=== PATIENT | female | born 1950 | race Caucasian/White ===

== ENCOUNTER 2021-08-08 11:35 | Inpatient (IN) | payer MEDICARE, SELFPAY ==
--- NOTE | 2021-08-08 | ECG_ITS ---
Test Reason : qtc check Blood Pressure : / mmHG Vent. Rate : 082 BPM Atrial Rate : 082 BPM P-R Int : 144 ms QRS Dur : 076 ms QT Int : 382 ms P-R-T Axes : 022 011 038 degrees QTc Int : 446 ms Sinus rhythm with Premature atrial complexes Otherwise normal ECG No previous ECGs available Referred By: Mukesh Harvey Electronically Signed By:FESTUS FREEMAN
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
[2021-08-08] MEDS: Furosemide 40 MG TABLET PO (14:30)
[2021-08-08 18:00] VITALS: BP 127/77; PULSE 80; RESP 18; TEMP 36.1; O2SAT 99
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
[2021-08-08] MEDS: Lurasidone HCl 80 MG TABLET PO (21:13)
[2021-08-08] MEDS: hydrOXYzine HCL 25 MG TABLET PO (21:13)
[2021-08-08] MEDS: traZODone HCL 100 MG TABLET 200 MG PO (21:13)
[2021-08-08] MEDS: DULoxetine HCl 60 MG CAPSULE.DR PO (21:13)
[2021-08-08] MEDS: traMADoL HCL 50 MG TABLET PO (21:14)
[2021-08-08 21:54] LABS: Appearance Urine CLEAR; Color Urine YELLOW; Glucose Urine UA NEG (NEG); Leukocyte Esterase Urine NEG (NEG); Nitrite Urine NEG (NEG); Specific Gravity - Urine 1.015 (1.005-1.025); Urine Blood NEG (NEG); Urine Ketones NEG (NEG); Urine Protein NEG (NEG-TRACE)
[2021-08-09] MEDS: traZODone HCL 50 MG TABLET PO (01:04)
[2021-08-09 06:00] VITALS: BP 116/60; PULSE 88; TEMP 36; O2SAT 95
[2021-08-09] MEDS: traMADoL HCL 50 MG TABLET 100 MG PO (06:44)
[2021-08-09 07:10] LABS: MANUAL DIFF FLAG NO
[2021-08-09 07:13] LABS: Basophils Absolute Auto 0.1 X10*3/uL (0.0-0.2); Basophils Percent Auto 0.6 % (0-2); Eosinophils Absolute Auto 0.4 X10*3/uL (0.0-0.4); Hematocrit 41.1 % (37-47); Hemoglobin 13.8 g/dl (12.0-16.0); Imm Gran Abs Auto 0.03 X10*3/uL (0.00-0.03); Imm Gran Pct Auto 0.4 % (0.0-0.4); Lymphocytes Percent Auto 37.5 % (20-40); Mean Corpuscular HGB Conc 33.6 g/dl (31.0-35.0); Mean Corpuscular Hemoglobin 31.1 pg (27.0-33.0); Mean Corpuscular Volume 92.6 fL (80-98); Mean Platelet Volume 11.7 fL (9.4-12.3); Monocytes Absolute Auto 0.5 X10*3/uL (0.1-1.2); Monocytes Percent Auto 6.4 % (2-11); Neutrophils Percent Auto 50.1 % (45-73); Platelet Count 206 X10*3/uL (160-400); Red Blood Count 4.44 X10*6/uL (4.20-5.50); Red Cell Distribution Width 13.6 % (11.0-16.0)
[2021-08-09 07:25] LABS: Estimated Average Glucose 105 mg/dL; Hemoglobin A1c % 5.3 %
[2021-08-09 07:29] LABS: Anion Gap 14 (12-20); Blood Urea Nitrogen 27 mg/dL (9-16); Calcium 8.4 mg/dL (8.4-10.2); Carbon Dioxide 28 mmol/L (22-29); Chloride 104 mmol/L (96-108); Cholesterol 177 mg/dL; Estimated Glomerular Filt Rate 31; Glucose Random 95 mg/dL (60-115); HDL Cholesterol 50 mg/dL; LDL Cholesterol Calculated 105 mg/dl; Potassium 3.7 mmol/L (3.3-5.1); Sodium 142 mmol/L (135-145); Triglycerides 112 mg/dL
[2021-08-09 07:49] LABS: Thyroid Stimulating Hormone 2.04 uIU/mL (0.32-4.0)
[2021-08-09 08:06] LABS: Folate 10.9 ng/mL (> or = 4.0); Vitamin B12 466 pg/mL (200-900)
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
[2021-08-09] MEDS: Furosemide 40 MG TABLET PO (09:46)
[2021-08-09] MEDS: Rilpivirine HCL 25 MG TABLET PO (09:46)
[2021-08-09] MEDS: lamiVUDine 150 MG TABLET 300 MG PO (09:46)
[2021-08-09] MEDS: calcitrioL 0.25 MCG CAPSULE PO (09:46)
[2021-08-09] MEDS: DULoxetine HCl 60 MG CAPSULE.DR PO ×2 (09:47→20:41)
[2021-08-09] MEDS: hydrOXYzine HCL 25 MG TABLET PO ×3 (09:47→20:42)
--- NOTE | 2021-08-09 14:50 | PM.IMCN ---
History of Present Illness Data of Consult Service Date: 08/09/21 Primary Care Provider: Abraham Melton MD [facility] Reason for consult: Routine medical exam This is a 71 yo F with a PMH of CKD2/3, HIV, Bipolar disorder who wanted to [facility] with auditory hallucinations. She has been since transferred to the inpatient [facility] psych Unit at [facility]. Patient is seen and examined in her room. She reports generalized itching which is chronic for her but otherwise denies any medical complaints. She denies any chest pain or shortness of breath. She denies any cough. She denies any abdominal pain. Her PMH is obtained with the help of the admission H&P from [facility]. Review of Systems Review of Systems: General - no fevers or chills Cardiovascular - no chest pain Respiratory - no shortness of breath or cough Abdominal- no abdominal pain, nausea, vomiting, diarrhea Yes all other systems are reviewed and are negative (except psych) [facility] Medical History (Updated 08/09/21 @ 15:06 by Gabriel Barraza MD) Asthma History of nephrolithiasis HIV (human immunodeficiency virus infection) Hypoparathyroidism Impaired fasting glucose Mild dementia BOO (obstructive sleep apnea) Spinal stenosis Stage III chronic kidney disease Stenotic cervical os Pertinent family history: Rectal cancer in her father in his 80s Surgical History (Updated 08/09/21 @ 15:02 by Gabriel Barraza MD) H/O parathyroidectomy Social History Household Members: None Housing: Apartment Do you presently have visiting nurse or other home services: No Patient Tobacco Use Status: Never used Tobacco Use of substances other than those prescribed or required for medical reasons: No Currently Displaying Signs/Symptoms of Drug Intoxication Withdrawal: No Have you been hit, kicked, punched, or otherwise hurt by someone within the past year? If so, by whom?: No Do you feel safe in your current relationship?: No Current Relationship Is there a partner from a previous relationship who is making you feel unsafe now?: No Are you made to feel afraid or neglected: No Advance Directives: No Advance Directives Information Provided: No Do you have thoughts of harming others: None Do you have a plan to hurt others: No Plan Recently lost weight without trying: No How much weight loss: Not applicable Eating poorly because of decreased appetite: No Nutrition screen score: 0 Nutrition Risks: No Nutritional Risk Patient : No : No Poor oral hygiene: No service: No Sexual orientation: Straight/Heterosexual Meds Allergies Allergy/AdvReac Type Severity Reaction Status Date / Time aspirin [ASA] AdvReac Unknown Verified 08/08/21 11:51 lactose AdvReac Nausea and Verified 08/08/21 11:51 Vomiting risperidone [From Risperdal] AdvReac Unknown Verified 08/08/21 11:51 Active Medications: Current Medications Abacavir Sulfate (Abacavir Sulfate 300 Mg Tablet) 300 mg PO Q12H [facility] Last Admin: 08/09/21 06:44 Dose: 300 mg Documented by: Acetaminophen (Acetaminophen 325 Mg Tablet) 650 mg PO Q6H PRN PRN Reason: Headache/Pain Mild Scale (1-3) Al Hydroxide/Mg Hydroxide (Magnesium Hydrox/Alum Hydrox 30 Ml Oral.Susp) 30 ml PO Q6H PRN PRN Reason: Heartburn/Nausea Albuterol Sulfate (Albuterol Sulfate 90 Mcg 8 Gm Inhaler) 2 puff INHALE Q6H PRN PRN Reason: Wheezing Calcitriol (Calcitriol 0.25 Mcg Capsule) 0.25 mcg PO DAILY [facility] Last Admin: 08/09/21 09:46 Dose: 0.25 mcg Documented by: Calcium Carbonate (Calcium Carbonate 500 Mg Tablet) 500 mg PO DAILY [facility] Last Admin: 08/09/21 09:46 Dose: 500 mg Documented by: Duloxetine HCl (Duloxetine Hcl 60 Mg Capsule.Dr) 60 mg PO BID [facility] Last Admin: 08/09/21 09:47 Dose: 60 mg Documented by: Furosemide (Furosemide 40 Mg Tablet) 40 mg PO DAILY [facility]; Protocol Last Admin: 08/09/21 09:46 Dose: 40 mg Documented by: Furosemide (Furosemide 20 Mg Tablet) 20 mg PO BEDTIME [facility] Last Admin: 08/08/21 22:49 Dose: Not Given Documented by: Hydroxyzine HCl (Hydroxyzine Hcl 25 Mg Tablet) 25 mg PO TID [facility] Last Admin: 08/09/21 14:21 Dose: 25 mg Documented by: Lamivudine (Lamivudine 150 Mg Tablet) 300 mg PO DAILY [facility] Last Admin: 08/09/21 09:46 Dose: 300 mg Documented by: Lurasidone HCl (Lurasidone Hcl 80 Mg Tablet) 80 mg PO BEDTIME [facility] Last Admin: 08/08/21 21:13 Dose: 80 mg Documented by: Magnesium Hydroxide (Milk Of Magnesia 30 Ml Oral.Susp) 30 ml PO DAILY PRN PRN Reason: Constipation Multivitamins/Minerals (Multivitamin With Minerals Tablet) 1 tab PO DAILY [facility] Last Admin: 08/09/21 14:09 Dose: Not Given Documented by: Non-Formulary Medication (Potassium Citrate) 20 meq PO BID@0900,1700 [facility] Rilpivirine (Rilpivirine Hcl 25 Mg Tablet) 25 mg PO DAILY [facility] Last Admin: 08/09/21 09:46 Dose: 25 mg Documented by: Tramadol HCl (Tramadol Hcl 50 Mg Tablet) 50 mg PO BEDTIME [facility] Last Admin: 08/08/21 21:14 Dose: 50 mg Documented by: Tramadol HCl (Tramadol Hcl 50 Mg Tablet) 100 mg PO DAILY@0730 [facility] Last Admin: 08/09/21 06:44 Dose: 100 mg Documented by: Trazodone HCl (Trazodone Hcl 50 Mg Tablet) 50 mg PO BEDTIME PRN PRN Reason: Insomnia Last Admin: 08/09/21 01:04 Dose: 50 mg Documented by: Trazodone HCl (Trazodone Hcl 100 Mg Tablet) 200 mg PO BEDTIME [facility] Last Admin: 08/08/21 21:13 Dose: 200 mg Documented by: Home Medications Medication Instructions Recorded Confirmed Last Taken Type abacavir 300 mg tablet 300 mg PO Q12H 08/08/21 08/08/21 Unknown History albuterol sulfate 90 mcg/actuation 2 puff INHALATION Q6H PRN MDD 12 08/08/21 08/08/21 Unknown History aerosol inhaler (Ventolin HFA) puffs calcitriol 0.25 mcg capsule 0.25 mcg PO DAILY 08/08/21 08/08/21 Unknown History calcium carbonate 500 mg capsule 500 mg PO DAILY 08/08/21 08/08/21 Unknown History duloxetine 60 mg capsule,delayed 60 mg PO BID 08/08/21 08/08/21 Unknown History release furosemide 20 mg PO BEDTIME 08/08/21 08/08/21 Unknown History furosemide 40 mg tablet 40 mg PO QAM 08/08/21 08/08/21 Unknown History hydroxyzine pamoate 25 mg capsule 25 mg PO TID 08/08/21 08/08/21 Unknown History lamivudine 300 mg tablet 300 mg PO DAILY 08/08/21 08/08/21 Unknown History lurasidone 60 mg tablet (Latuda) 60 mg PO DAILY 08/08/21 08/08/21 Unknown History multivitamin,ea-fkvu-Fw-FA-min 1 tab PO DAILY 08/08/21 08/08/21 Unknown History potassium citrate 20 meq PO BID@0900,1700 08/08/21 08/08/21 Unknown History rilpivirine 25 mg tablet (Edurant) 25 mg PO DAILY 08/08/21 08/08/21 Unknown History tramadol 100 mg tablet 100 mg PO DAILY@0730 08/08/21 08/08/21 Unknown History tramadol 50 mg tablet 50 mg PO BEDTIME 08/08/21 08/08/21 Unknown History trazodone 100 mg tablet 200 mg PO BEDTIME 08/08/21 08/08/21 Unknown History Physical Exam Vital Signs and Narrative: Vital Signs: Last Vital Signs Temp 96.8 F 08/09/21 06:00 Pulse 88 08/09/21 06:00 Resp 18 08/08/21 18:00 BP 116/60 08/09/21 06:00 Pulse Ox 95 08/09/21 06:00 Const: Other: General - no acute distress, appears comfortable Cardiovascular - regular rate and rhythm, S1-S2 Lungs - normal respiratory effort, clear to auscultation bilaterally, no wheezing Abdomen - soft, nontender, no rebound or guarding Extremities - no edema bilaterally Neuro - awake and alert, no focal deficits; CN 2-12 in tact Results Labs CBC and Chem 7: 08/09/21 06:54 08/09/21 06:54 Labs: Laboratory Results - last 24 hr 08/08/21 08/09/21 08/09/21 21:50 06:54 06:54 MCV 92.6 MCH 31.1 MCHC 33.6 RDW 13.6 Plt Count 206 MPV 11.7 Immature Gran % (Auto) 0.4 Neut % (Auto) 50.1 Lymph % (Auto) 37.5 [place] % (Auto) 6.4 Eos % (Auto) 5.0 H Baso % (Auto) 0.6 Lymph # (Auto) 3.0 [place] # (Auto) 0.5 Eos # (Auto) 0.4 Baso # (Auto) 0.1 Abs Immat Gran (auto) 0.03 Absolute Neuts (auto) 4.0 Absolute Nucleated RBC 0.000 Nucleated RBC % (auto) 0.0 Anion Gap 14 Estim Creat Clear Calc TNP Estimated GFR 31 Random Glucose 95 Estimat Average Glucose Hemoglobin A1c % Calcium 8.4 Triglycerides 112 Cholesterol 177 LDL Cholesterol, Calc 105 HDL Cholesterol 50 Vitamin B12 Folate TSH 2.04 Urine Color YELLOW Urine Appearance CLEAR Urine pH 6.0 Ur Specific [place] 1.015 Urine Protein NEG Urine Glucose (UA) NEG Urine Ketones NEG Urine Blood NEG Urine Nitrite NEG Ur Leukocyte Esterase NEG 08/09/21 08/09/21 06:54 06:54 MCV MCH MCHC RDW Plt Count MPV Immature Gran % (Auto) Neut % (Auto) Lymph % (Auto) [place] % (Auto) Eos % (Auto) Baso % (Auto) Lymph # (Auto) [place] # (Auto) Eos # (Auto) Baso # (Auto) Abs Immat Gran (auto) Absolute Neuts (auto) Absolute Nucleated RBC Nucleated RBC % (auto) Anion Gap Estim Creat Clear Calc Estimated GFR Random Glucose Estimat Average Glucose 105 Hemoglobin A1c % 5.3 Calcium Triglycerides Cholesterol LDL Cholesterol, Calc HDL Cholesterol Vitamin B12 466 Folate 10.9 TSH Urine Color Urine Appearance Urine pH Ur Specific [place] Urine Protein Urine Glucose (UA) Urine Ketones Urine Blood Urine Nitrite Ur Leukocyte Esterase Assessment and Plan (1) Routine medical exam: Status: Acute This is a 71-year-old female with multiple medical problems including CKD stage 3, HIV on HAART, hyperparathyroidism, bipolar disorder amongst others who is admitted to the [facility] psych unit. Medical services are consulted for routine medical H&P. Patient appears to be medically stable at this time. 1. HIV Continue HAART 2. Hyperparathyroidism continue baseline meds 3. CKD3 monitor renal function intermittently 4. Bipolar d/o care per primary team Will sign off at this time. Please re-consult with any questions. Thank you.
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
[2021-08-09 18:00] VITALS: BP 130/82; PULSE 86; RESP 18; TEMP 36.2; O2SAT 94
[2021-08-09] MEDS: Furosemide 20 MG TABLET PO (20:41)
[2021-08-09] MEDS: traMADoL HCL 50 MG TABLET PO (20:42)
[2021-08-09] MEDS: Lurasidone HCl 80 MG TABLET PO (20:42)
[2021-08-09] MEDS: traZODone HCL 100 MG TABLET 200 MG PO (20:43)
[2021-08-10 09:21] VITALS: BP 122/59; PULSE 81; RESP 14; TEMP 36.6; O2SAT 92
[2021-08-10] MEDS: traMADoL HCL 50 MG TABLET 100 MG PO (09:41)
[2021-08-10] MEDS: hydrOXYzine HCL 25 MG TABLET PO ×3 (09:42→19:57)
[2021-08-10] MEDS: lamiVUDine 150 MG TABLET 300 MG PO (09:42)
[2021-08-10] MEDS: calcitrioL 0.25 MCG CAPSULE PO (09:43)
[2021-08-10] MEDS: Furosemide 40 MG TABLET PO (09:44)
[2021-08-10] MEDS: Rilpivirine HCL 25 MG TABLET PO (09:44)
[2021-08-10] MEDS: DULoxetine HCl 60 MG CAPSULE.DR PO ×2 (09:44→19:57)
[2021-08-10] MEDS: Multivitamin TABLET 1 TAB PO (09:45)
[2021-08-10 18:00] VITALS: BP 169/88; PULSE 98; RESP 20; TEMP 36.4; O2SAT 93
[2021-08-10] MEDS: traZODone HCL 100 MG TABLET 200 MG PO (19:55)
[2021-08-10] MEDS: traMADoL HCL 50 MG TABLET PO (19:55)
[2021-08-10] MEDS: Furosemide 20 MG TABLET PO (19:57)
[2021-08-10] MEDS: Lurasidone HCl 80 MG TABLET PO (19:57)
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
[2021-08-11 08:50] VITALS: BP 120/71; PULSE 85; RESP 16; TEMP 36.6; O2SAT 97
[2021-08-11] MEDS: Rilpivirine HCL 25 MG TABLET PO (08:57)
[2021-08-11] MEDS: lamiVUDine 150 MG TABLET 300 MG PO (08:57)
[2021-08-11] MEDS: calcitrioL 0.25 MCG CAPSULE PO (08:58)
[2021-08-11] MEDS: Furosemide 40 MG TABLET PO (08:58)
[2021-08-11] MEDS: Multivitamin TABLET 1 TAB PO (08:58)
[2021-08-11] MEDS: DULoxetine HCl 60 MG CAPSULE.DR PO ×2 (08:58→20:40)
[2021-08-11] MEDS: traMADoL HCL 50 MG TABLET 100 MG PO (08:59)
[2021-08-11] MEDS: hydrOXYzine HCL 25 MG TABLET PO ×3 (09:02→20:40)
[2021-08-11] MEDS: Acetaminophen 325 MG TABLET 650 MG PO (10:48)
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
[2021-08-11 18:00] VITALS: BP 95/58; PULSE 92; RESP 18; TEMP 36.6; O2SAT 96
[2021-08-11] MEDS: traZODone HCL 100 MG TABLET 200 MG PO (20:38)
[2021-08-11] MEDS: traMADoL HCL 50 MG TABLET PO (20:39)
[2021-08-11] MEDS: Lurasidone HCl 80 MG TABLET PO (20:40)
[2021-08-12 06:00] VITALS: BP 121/78; PULSE 68
[2021-08-12] MEDS: traMADoL HCL 50 MG TABLET 100 MG PO (10:13)
[2021-08-12] MEDS: hydrOXYzine HCL 25 MG TABLET PO ×3 (10:13→21:03)
[2021-08-12] MEDS: Multivitamin TABLET 1 TAB PO (10:16)
[2021-08-12] MEDS: lamiVUDine 150 MG TABLET 300 MG PO (10:17)
[2021-08-12] MEDS: calcitrioL 0.25 MCG CAPSULE PO (10:17)
[2021-08-12] MEDS: DULoxetine HCl 60 MG CAPSULE.DR PO ×2 (10:18→21:03)
[2021-08-12] MEDS: Rilpivirine HCL 25 MG TABLET PO (10:18)
[2021-08-12] MEDS: Furosemide 40 MG TABLET PO (10:18)
[2021-08-12] MEDS: HaloperidoL 1 MG TABLET 2 MG PO ×2 (11:55→21:03)
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
[2021-08-12] MEDS: Furosemide 20 MG TABLET PO (17:00)
[2021-08-12 18:00] VITALS: BP 115/76; PULSE 86; RESP 18; TEMP 36.9; O2SAT 90
[2021-08-12] MEDS: Lurasidone HCl 80 MG TABLET PO (21:03)
[2021-08-12] MEDS: traZODone HCL 100 MG TABLET 200 MG PO (21:03)
[2021-08-12] MEDS: traMADoL HCL 50 MG TABLET PO (21:04)
[2021-08-13] MEDS: Acetaminophen 325 MG TABLET 650 MG PO (03:43)
[2021-08-13 06:00] VITALS: BP 135/79; PULSE 78; RESP 16; TEMP 36.7; O2SAT 94
[2021-08-13] MEDS: DULoxetine HCl 60 MG CAPSULE.DR PO ×2 (10:01→20:26)
[2021-08-13] MEDS: HaloperidoL 1 MG TABLET 2 MG PO ×2 (10:01→20:26)
[2021-08-13] MEDS: lamiVUDine 150 MG TABLET 300 MG PO (10:02)
[2021-08-13] MEDS: traMADoL HCL 50 MG TABLET 100 MG PO (10:05)
[2021-08-13] MEDS: Rilpivirine HCL 25 MG TABLET PO (10:06)
[2021-08-13] MEDS: hydrOXYzine HCL 25 MG TABLET PO ×3 (10:06→20:25)
[2021-08-13] MEDS: Multivitamin TABLET 1 TAB PO (10:06)
[2021-08-13] MEDS: calcitrioL 0.25 MCG CAPSULE PO (10:06)
[2021-08-13] MEDS: Furosemide 40 MG TABLET PO (10:07)
[2021-08-13] MEDS: Magnesium Hydrox/Alum Hydrox 30 ML ORAL.SUSP PO (10:20)
[2021-08-13] MEDS: Furosemide 20 MG TABLET PO (16:43)
[2021-08-13 18:00] VITALS: BP 133/90; PULSE 84; RESP 18; TEMP 36.8; O2SAT 95
[2021-08-13] MEDS: traZODone HCL 100 MG TABLET 200 MG PO (20:25)
[2021-08-13] MEDS: Lurasidone HCl 80 MG TABLET PO (20:25)
[2021-08-13] MEDS: traMADoL HCL 50 MG TABLET PO (20:26)
[2021-08-14] MEDS: Acetaminophen 325 MG TABLET 650 MG PO (05:12)
[2021-08-14] MEDS: DULoxetine HCl 60 MG CAPSULE.DR PO ×2 (08:11→19:59)
[2021-08-14] MEDS: Furosemide 40 MG TABLET PO (08:12)
[2021-08-14] MEDS: Multivitamin TABLET 1 TAB PO (08:12)
[2021-08-14] MEDS: hydrOXYzine HCL 25 MG TABLET PO ×3 (08:12→20:00)
[2021-08-14] MEDS: HaloperidoL 1 MG TABLET 2 MG PO (08:12)
[2021-08-14] MEDS: Rilpivirine HCL 25 MG TABLET PO (08:19)
[2021-08-14] MEDS: calcitrioL 0.25 MCG CAPSULE PO (08:19)
[2021-08-14] MEDS: lamiVUDine 150 MG TABLET 300 MG PO (08:19)
[2021-08-14 08:31] VITALS: BP 109/70; PULSE 80; RESP 16; TEMP 37; O2SAT 97
[2021-08-14] MEDS: traMADoL HCL 50 MG TABLET 100 MG PO (09:39)
[2021-08-14] MEDS: Milk of Magnesia 30 ML ORAL.SUSP PO (10:50)
[2021-08-14] MEDS: Furosemide 20 MG TABLET PO (16:37)
[2021-08-14 18:00] VITALS: BP 105/64; PULSE 80; RESP 18; TEMP 36.9; O2SAT 95
[2021-08-14] MEDS: traZODone HCL 100 MG TABLET 200 MG PO (19:58)
[2021-08-14] MEDS: traMADoL HCL 50 MG TABLET PO (19:59)
[2021-08-14] MEDS: Lurasidone HCl 40 MG TABLET 120 MG PO (20:00)
[2021-08-15 09:41] VITALS: BP 113/63; PULSE 85; RESP 16; TEMP 36.5; O2SAT 95
[2021-08-15] MEDS: traMADoL HCL 50 MG TABLET 100 MG PO (10:07)
[2021-08-15] MEDS: Rilpivirine HCL 25 MG TABLET PO (10:07)
[2021-08-15] MEDS: calcitrioL 0.25 MCG CAPSULE PO (10:07)
[2021-08-15] MEDS: hydrOXYzine HCL 25 MG TABLET PO ×2 (10:08→20:17)
[2021-08-15] MEDS: Multivitamin TABLET 1 TAB PO (10:08)
[2021-08-15] MEDS: Furosemide 40 MG TABLET PO (10:08)
[2021-08-15] MEDS: lamiVUDine 150 MG TABLET 300 MG PO (10:08)
[2021-08-15] MEDS: DULoxetine HCl 60 MG CAPSULE.DR PO ×2 (10:08→20:17)
--- NOTE | 2021-08-15 13:47 | HO.PSYCHPN ---
Subjective Subjective Date of Service: 08/15/21 Reason For Visit: Major depressive w/psychotic features Subjective Notes: Conditional Voluntary Interim History: The nursing staff reported that the patients comes out only for meals, she is mostly seclusive but appropriated. Staff has reported that she self-talks and responds to internal stimuli. SW has reported that the patient does not have social contacts, no way to get collateral information besides staff from ancillary services. On interview, she reported that she does not hear voices, looks appropriated. Review of Systems Acute medical concerns: No Medical Review of Systems: unchanged Mental Status Exam Mental Status Exam Patient Appearance: Disheveled Patient Orientation: Person and Situation Level of Consciousness: Awake Patient Behavior: Appropriate Mood Description: Calm Affect Description: Blunted Patient Cognition Impaired: Yes Ability to Follow Directions: Good Speech Pattern: Clear Memory Description: Intact Hallucinations: Auditory Delusions: Not Present Thought Process: Linear and Slowed Thinking Thought Content: positive for Poverty of Content Judgement: Fair Diagnostics Vital Signs (24Hr): Vital Signs - 24 hr 08/14/21 18:00 08/15/21 09:41 Temperature 98.4 F 97.7 F Pulse Rate 80 85 Respiratory Rate 18 16 Blood Pressure 105/64 113/63 Pulse Oximetry 95 95 Labs Results: 08/09/21 06:54 08/09/21 06:54 Medications Medications Current Medications Abacavir Sulfate (Abacavir Sulfate 300 Mg Tablet) 300 mg PO BID [facility] Last Admin: 08/15/21 10:08 Dose: 300 mg Documented by: Acetaminophen (Acetaminophen 325 Mg Tablet) 650 mg PO Q6H PRN PRN Reason: Headache/Pain Mild Scale (1-3) Last Admin: 08/14/21 05:12 Dose: 650 mg Documented by: Al Hydroxide/Mg Hydroxide (Magnesium Hydrox/Alum Hydrox 30 Ml Oral.Susp) 30 ml PO Q6H PRN PRN Reason: Heartburn/Nausea Last Admin: 08/13/21 10:20 Dose: 30 ml Documented by: Albuterol Sulfate (Albuterol Sulfate 90 Mcg 8 Gm Inhaler) 2 puff INHALE Q6H PRN PRN Reason: Wheezing Calcitriol (Calcitriol 0.25 Mcg Capsule) 0.25 mcg PO DAILY [facility] Last Admin: 08/15/21 10:07 Dose: 0.25 mcg Documented by: Calcium Carbonate (Calcium Carbonate 500 Mg Tablet) 500 mg PO DAILY [facility] Last Admin: 08/15/21 10:08 Dose: 500 mg Documented by: Duloxetine HCl (Duloxetine Hcl 60 Mg Capsule.Dr) 60 mg PO BID [facility] Last Admin: 08/15/21 10:08 Dose: 60 mg Documented by: Furosemide (Furosemide 40 Mg Tablet) 40 mg PO DAILY [facility]; Protocol Last Admin: 08/15/21 10:08 Dose: 40 mg Documented by: Furosemide (Furosemide 20 Mg Tablet) 20 mg PO BEDTIME@1700 [facility] Last Admin: 08/14/21 16:37 Dose: 20 mg Documented by: Haloperidol (Haloperidol 1 Mg Tablet) 2 mg PO BID PRN PRN Reason: psychosis Hydroxyzine HCl (Hydroxyzine Hcl 25 Mg Tablet) 25 mg PO TID [facility] Last Admin: 08/15/21 10:08 Dose: 25 mg Documented by: Lamivudine (Lamivudine 150 Mg Tablet) 300 mg PO DAILY [facility] Last Admin: 08/15/21 10:08 Dose: 300 mg Documented by: Lurasidone HCl (Lurasidone Hcl 40 Mg Tablet) 120 mg PO BEDTIME [facility] Last Admin: 08/14/21 20:00 Dose: 120 mg Documented by: Magnesium Hydroxide (Milk Of Magnesia 30 Ml Oral.Susp) 30 ml PO DAILY PRN PRN Reason: Constipation Last Admin: 08/14/21 10:50 Dose: 30 ml Documented by: Multivitamins/Vitamin C (Multivitamin Tablet) 1 tab PO DAILY [facility] Last Admin: 08/15/21 10:08 Dose: 1 tab Documented by: Non-Formulary Medication (Potassium Citrate) 20 meq PO BID@0900,1700 [facility] Rilpivirine (Rilpivirine Hcl 25 Mg Tablet) 25 mg PO DAILY [facility] Last Admin: 08/15/21 10:07 Dose: 25 mg Documented by: Tramadol HCl (Tramadol Hcl 50 Mg Tablet) 100 mg PO DAILY@0730 [facility] Last Admin: 08/15/21 10:07 Dose: 100 mg Documented by: Tramadol HCl (Tramadol Hcl 50 Mg Tablet) 50 mg PO BEDTIME [facility] Last Admin: 08/14/21 19:59 Dose: 50 mg Documented by: Trazodone HCl (Trazodone Hcl 50 Mg Tablet) 50 mg PO BEDTIME PRN PRN Reason: Insomnia Last Admin: 08/09/21 01:04 Dose: 50 mg Documented by: Trazodone HCl (Trazodone Hcl 100 Mg Tablet) 200 mg PO BEDTIME [facility] Last Admin: 08/14/21 19:58 Dose: 200 mg Documented by: Allergies Allergies Allergy/AdvReac Type Severity Reaction Status Date / Time aspirin [ASA] AdvReac Unknown Verified 08/08/21 11:51 lactose AdvReac Nausea and Verified 08/08/21 11:51 Vomiting risperidone [From Risperdal] AdvReac Unknown Verified 08/08/21 11:51 Assessment & Plan Assessment & Plan (1) Routine medical exam: Status: Acute Code(s): Z00.00 - Encounter for general adult medical examination without abnormal findings Assessment and Plan: The annamaria is an elderly descendant female [place] speaking with past history of HIV, psychosis admitted for exacerbation of psychosis. Plan: 1. We have titrated Latuda up to 120 mg with no side effects. 2. Haldol is PRN now 3. Get collateral information Greater than 50% of the session was spent on counseling and/or coordination of care Reason for contiued inpatient stay Substantial Risk for: inability to function, rapid decompensation and med/psych decompensation
[2021-08-15 18:00] VITALS: BP 102/66; PULSE 81; RESP 17; TEMP 36.5; O2SAT 93
[2021-08-15] MEDS: traMADoL HCL 50 MG TABLET PO (20:17)
[2021-08-15] MEDS: traZODone HCL 100 MG TABLET 200 MG PO (20:17)
[2021-08-15] MEDS: Lurasidone HCl 40 MG TABLET 120 MG PO (20:18)
[2021-08-16 06:00] VITALS: BP 110/68; PULSE 80; RESP 16; TEMP 36.3; O2SAT 95
[2021-08-16] MEDS: DULoxetine HCl 60 MG CAPSULE.DR PO ×2 (08:16→19:50)
[2021-08-16] MEDS: traMADoL HCL 50 MG TABLET 100 MG PO (08:17)
[2021-08-16] MEDS: calcitrioL 0.25 MCG CAPSULE PO (08:17)
[2021-08-16] MEDS: Furosemide 40 MG TABLET PO (08:17)
[2021-08-16] MEDS: Rilpivirine HCL 25 MG TABLET PO (08:17)
[2021-08-16] MEDS: Multivitamin TABLET 1 TAB PO (08:17)
[2021-08-16] MEDS: hydrOXYzine HCL 25 MG TABLET PO ×3 (08:17→19:49)
[2021-08-16] MEDS: lamiVUDine 150 MG TABLET 300 MG PO (08:17)
--- NOTE | 2021-08-16 14:22 | P.PNPSI_ITS ---
Subjective Subjective Date of Service: 08/16/21 Reason For Visit: Major depressive w/psychotic features Subjective Notes: Conditional Voluntary Interim History: The nursing staff reported the patient has been isolative, mostly her bed but compliant with treatment. She was seen self talking to herself at night but she denies auditory hallucinations. The social science instructor was able to contact [facility] staff and apparently this is her baseline. On interview, the patient denies new symptoms she is pleasant and cooperative Mental Status Exam Mental Status Exam Patient Appearance: Disheveled Patient Orientation: Person and Place Level of Consciousness: Awake Patient Behavior: Cooperative Mood Description: Calm Affect Description: Constricted Ability to Follow Directions: Good Speech Pattern: Appropriate Hallucinations: None Delusions: Paranoid Ideation Thought Process: Slowed Thinking Thought Content: positive for Circumstantial Judgement: Fair Diagnostics Vital Signs (24Hr): Vital Signs - 24 hr 08/15/21 18:00 08/16/21 06:00 Temperature 97.7 F 97.4 F Pulse Rate 81 80 Respiratory Rate 17 16 Blood Pressure 102/66 110/68 Pulse Oximetry 93 95 Labs Results: 08/09/21 06:54 08/09/21 06:54 Medications Medications Current Medications Abacavir Sulfate (Abacavir Sulfate 300 Mg Tablet) 300 mg PO BID [facility] Last Admin: 08/16/21 08:17 Dose: 300 mg Documented by: Acetaminophen (Acetaminophen 325 Mg Tablet) 650 mg PO Q6H PRN PRN Reason: Headache/Pain Mild Scale (1-3) Last Admin: 08/14/21 05:12 Dose: 650 mg Documented by: Al Hydroxide/Mg Hydroxide (Magnesium Hydrox/Alum Hydrox 30 Ml Oral.Susp) 30 ml PO Q6H PRN PRN Reason: Heartburn/Nausea Last Admin: 08/13/21 10:20 Dose: 30 ml Documented by: Albuterol Sulfate (Albuterol Sulfate 90 Mcg 8 Gm Inhaler) 2 puff INHALE Q6H PRN PRN Reason: Wheezing Calcitriol (Calcitriol 0.25 Mcg Capsule) 0.25 mcg PO DAILY [facility] Last Admin: 08/16/21 08:17 Dose: 0.25 mcg Documented by: Calcium Carbonate (Calcium Carbonate 500 Mg Tablet) 500 mg PO DAILY [facility] Last Admin: 08/16/21 08:18 Dose: 500 mg Documented by: Duloxetine HCl (Duloxetine Hcl 60 Mg Capsule.) 60 mg PO BID [facility] Last Admin: 08/16/21 08:16 Dose: 60 mg Documented by: Furosemide (Furosemide 40 Mg Tablet) 40 mg PO DAILY [facility]; Protocol Last Admin: 08/16/21 08:17 Dose: 40 mg Documented by: Furosemide (Furosemide 20 Mg Tablet) 20 mg PO BEDTIME@1700 [facility] Last Admin: 08/15/21 18:39 Dose: Not Given Documented by: Haloperidol (Haloperidol 1 Mg Tablet) 2 mg PO BID PRN PRN Reason: psychosis Hydroxyzine HCl (Hydroxyzine Hcl 25 Mg Tablet) 25 mg PO TID [facility] Last Admin: 08/16/21 14:13 Dose: 25 mg Documented by: Lamivudine (Lamivudine 150 Mg Tablet) 300 mg PO DAILY [facility] Last Admin: 08/16/21 08:17 Dose: 300 mg Documented by: Lurasidone HCl (Lurasidone Hcl 40 Mg Tablet) 120 mg PO BEDTIME [facility] Last Admin: 08/15/21 20:18 Dose: 120 mg Documented by: Magnesium Hydroxide (Milk Of Magnesia 30 Ml Oral.Susp) 30 ml PO DAILY PRN PRN Reason: Constipation Last Admin: 08/14/21 10:50 Dose: 30 ml Documented by: Multivitamins/Vitamin C (Multivitamin Tablet) 1 tab PO DAILY [facility] Last Admin: 08/16/21 08:17 Dose: 1 tab Documented by: Non-Formulary Medication (Potassium Citrate) 20 meq PO BID@0900,1700 [facility] Rilpivirine (Rilpivirine Hcl 25 Mg Tablet) 25 mg PO DAILY [facility] Last Admin: 08/16/21 08:17 Dose: 25 mg Documented by: Tramadol HCl (Tramadol Hcl 50 Mg Tablet) 100 mg PO DAILY@0730 [facility] Last Admin: 08/16/21 08:17 Dose: 100 mg Documented by: Tramadol HCl (Tramadol Hcl 50 Mg Tablet) 50 mg PO BEDTIME [facility] Last Admin: 08/15/21 20:17 Dose: 50 mg Documented by: Trazodone HCl (Trazodone Hcl 50 Mg Tablet) 50 mg PO BEDTIME PRN PRN Reason: Insomnia Last Admin: 08/09/21 01:04 Dose: 50 mg Documented by: Trazodone HCl (Trazodone Hcl 100 Mg Tablet) 200 mg PO BEDTIME [facility] Last Admin: 08/15/21 20:17 Dose: 200 mg Documented by: Allergies Allergies Allergy/AdvReac Type Severity Reaction Status Date / Time aspirin [ASA] AdvReac Unknown Verified 08/08/21 11:51 lactose AdvReac Nausea and Verified 08/08/21 11:51 Vomiting risperidone [From Risperdal] AdvReac Unknown Verified 08/08/21 11:51 Assessment & Plan Assessment & Plan (1) Routine medical exam: Status: Acute Code(s): Z00.00 - Encounter for general adult medical examination without abnormal findings Assessment and Plan: The annamaria is an elderly descendant female Kinyarwanda speaking with past history of HIV, psychosis admitted for exacerbation of psychosis. Plan: 1. We have titrated Latuda up to 120 mg with no side effects. 2. Haldol is PRN now 3. Get collateral information and plan for possible discharge Greater than 50% of the session was spent on counseling and/or coordination of care Reason for contiued inpatient stay Substantial Risk for: inability to function, rapid decompensation and med/psych decompensation
[2021-08-16] MEDS: Furosemide 20 MG TABLET PO (16:18)
[2021-08-16] MEDS: traZODone HCL 50 MG TABLET PO (19:48)
[2021-08-16] MEDS: traZODone HCL 100 MG TABLET 200 MG PO (19:48)
[2021-08-16] MEDS: Lurasidone HCl 40 MG TABLET 120 MG PO (19:48)
[2021-08-16] MEDS: traMADoL HCL 50 MG TABLET PO (19:49)
[2021-08-16 20:03] VITALS: BP 106/75; PULSE 82; RESP 18; TEMP 36.7; O2SAT 95
[2021-08-17 06:00] VITALS: BP 108/68; PULSE 76; RESP 16; TEMP 36.1; O2SAT 97
[2021-08-17] MEDS: lamiVUDine 150 MG TABLET 300 MG PO (08:52)
[2021-08-17] MEDS: Rilpivirine HCL 25 MG TABLET PO (08:53)
[2021-08-17] MEDS: DULoxetine HCl 60 MG CAPSULE.DR PO ×2 (08:53→19:49)
[2021-08-17] MEDS: traMADoL HCL 50 MG TABLET 100 MG PO (08:54)
[2021-08-17] MEDS: calcitrioL 0.25 MCG CAPSULE PO (08:54)
[2021-08-17] MEDS: Furosemide 40 MG TABLET PO (08:55)
[2021-08-17] MEDS: Multivitamin TABLET 1 TAB PO (08:55)
[2021-08-17] MEDS: hydrOXYzine HCL 25 MG TABLET PO ×3 (08:55→19:51)
[2021-08-17 18:00] VITALS: BP 112/80; PULSE 78; RESP 16; TEMP 36; O2SAT 95
--- NOTE | 2021-08-17 18:16 | HO.PSYCHPN ---
Subjective Subjective Date of Service: 08/17/21 Reason For Visit: Major depressive w/psychotic features Interim History: Patient seen and discussed with team. Patient evaluated this morning and upon interview she reports she is doing alright. Says her sleep is alright. Reviewed med regimen. Denies having questions or concerns. Denies hallucinations. In the milieu, patient is safe but withdrawn in behavior. Denies SI/SIB/HI upon inquiry. Denies irritability or assaultive ideation. Says she feels safe. Mental Status Exam Mental Status Exam Narrative: Patient Appearance:?Disheveled Patient Orientation:?Person and Place Level of Consciousness:?Awake Patient Behavior:?Cooperative Mood Description:?Calm Affect Description:?Constricted Ability to Follow Directions:?Good Speech Pattern:?Appropriate Hallucinations:?None Delusions:?Paranoid Ideation Thought Process:?Slowed Thinking Thought Content:?positive for Circumstantial Judgement:?Fair Diagnostics Vital Signs (24Hr): Vital Signs - 24 hr 08/16/21 20:03 08/17/21 06:00 Temperature 98.1 F 97.0 F Pulse Rate 82 76 Respiratory Rate 18 16 Blood Pressure 106/75 108/68 Pulse Oximetry 95 97 Labs Results: 08/09/21 06:54 08/09/21 06:54 Medications Medications Current Medications Abacavir Sulfate (Abacavir Sulfate 300 Mg Tablet) 300 mg PO BID [facility] Last Admin: 08/17/21 08:54 Dose: 300 mg Documented by: Acetaminophen (Acetaminophen 325 Mg Tablet) 650 mg PO Q6H PRN PRN Reason: Headache/Pain Mild Scale (1-3) Last Admin: 08/14/21 05:12 Dose: 650 mg Documented by: Al Hydroxide/Mg Hydroxide (Magnesium Hydrox/Alum Hydrox 30 Ml Oral.Susp) 30 ml PO Q6H PRN PRN Reason: Heartburn/Nausea Last Admin: 08/13/21 10:20 Dose: 30 ml Documented by: Albuterol Sulfate (Albuterol Sulfate 90 Mcg 8 Gm Inhaler) 2 puff INHALE Q6H PRN PRN Reason: Wheezing Calcitriol (Calcitriol 0.25 Mcg Capsule) 0.25 mcg PO DAILY [facility] Last Admin: 08/17/21 08:54 Dose: 0.25 mcg Documented by: Calcium Carbonate (Calcium Carbonate 500 Mg Tablet) 500 mg PO DAILY [facility] Last Admin: 08/17/21 08:53 Dose: 500 mg Documented by: Duloxetine HCl (Duloxetine Hcl 60 Mg Capsule.Dr) 60 mg PO BID [facility] Last Admin: 08/17/21 08:53 Dose: 60 mg Documented by: Furosemide (Furosemide 40 Mg Tablet) 40 mg PO DAILY [facility]; Protocol Last Admin: 08/17/21 08:55 Dose: 40 mg Documented by: Furosemide (Furosemide 20 Mg Tablet) 20 mg PO DAILY@1400 [facility] Haloperidol (Haloperidol 1 Mg Tablet) 2 mg PO BID PRN PRN Reason: psychosis Hydroxyzine HCl (Hydroxyzine Hcl 25 Mg Tablet) 25 mg PO TID [facility] Last Admin: 08/17/21 15:20 Dose: 25 mg Documented by: Lamivudine (Lamivudine 150 Mg Tablet) 300 mg PO DAILY [facility] Last Admin: 08/17/21 08:52 Dose: 300 mg Documented by: Lurasidone HCl (Lurasidone Hcl 40 Mg Tablet) 120 mg PO BEDTIME [facility] Last Admin: 08/16/21 19:48 Dose: 120 mg Documented by: Magnesium Hydroxide (Milk Of Magnesia 30 Ml Oral.Susp) 30 ml PO DAILY PRN PRN Reason: Constipation Last Admin: 08/14/21 10:50 Dose: 30 ml Documented by: Multivitamins/Vitamin C (Multivitamin Tablet) 1 tab PO DAILY [facility] Last Admin: 08/17/21 08:55 Dose: 1 tab Documented by: Non-Formulary Medication (Potassium Citrate) 20 meq PO BID@0900,1700 [facility] Rilpivirine (Rilpivirine Hcl 25 Mg Tablet) 25 mg PO DAILY [facility] Last Admin: 08/17/21 08:53 Dose: 25 mg Documented by: Tramadol HCl (Tramadol Hcl 50 Mg Tablet) 100 mg PO DAILY@0730 [facility] Last Admin: 08/17/21 08:54 Dose: 100 mg Documented by: Tramadol HCl (Tramadol Hcl 50 Mg Tablet) 50 mg PO BEDTIME [facility] Last Admin: 08/16/21 19:49 Dose: 50 mg Documented by: Trazodone HCl (Trazodone Hcl 50 Mg Tablet) 50 mg PO BEDTIME PRN PRN Reason: Insomnia Last Admin: 08/16/21 19:48 Dose: 50 mg Documented by: Trazodone HCl (Trazodone Hcl 100 Mg Tablet) 200 mg PO BEDTIME [facility] Last Admin: 08/16/21 19:48 Dose: 200 mg Documented by: Allergies Allergies Allergy/AdvReac Type Severity Reaction Status Date / Time aspirin [ASA] AdvReac Unknown Verified 08/08/21 11:51 lactose AdvReac Nausea and Verified 08/08/21 11:51 Vomiting risperidone [From Risperdal] AdvReac Unknown Verified 08/08/21 11:51 Assessment & Plan Assessment & Plan (1) Routine medical exam: Status: Acute Code(s): Z00.00 - Encounter for general adult medical examination without abnormal findings Assessment and Plan: The patient is an elderly descendant female Telugu speaking with past history of HIV, psychosis admitted for exacerbation of psychosis. Plan: 1. We have titrated Latuda up to 120 mg with no side effects. 2. Haldol is PRN now 3. Get collateral information and plan for possible discharge Weekend coverage: reviewed med regimen, does not want changes. She is visible in the milieu for meals but mostly isolative and withdrawn. Greater than 50% of the session was spent on counseling and/or coordination of care Reason for contiued inpatient stay Substantial Risk for: inability to function, rapid decompensation and med/psych decompensation
[2021-08-17] MEDS: traZODone HCL 100 MG TABLET 200 MG PO (19:50)
[2021-08-17] MEDS: traMADoL HCL 50 MG TABLET PO (19:50)
[2021-08-17] MEDS: Lurasidone HCl 40 MG TABLET 120 MG PO (19:50)
[2021-08-17] MEDS: HaloperidoL 1 MG TABLET 2 MG PO (19:51)
[2021-08-18] MEDS: Acetaminophen 325 MG TABLET 650 MG PO (04:02)
[2021-08-18 06:00] VITALS: BP 107/74; PULSE 82; RESP 16; TEMP 36.2; O2SAT 95
[2021-08-18] MEDS: traMADoL HCL 50 MG TABLET 100 MG PO (07:53)
[2021-08-18] MEDS: lamiVUDine 150 MG TABLET 300 MG PO (09:25)
[2021-08-18] MEDS: Rilpivirine HCL 25 MG TABLET PO (09:26)
[2021-08-18] MEDS: calcitrioL 0.25 MCG CAPSULE PO (09:26)
[2021-08-18] MEDS: DULoxetine HCl 60 MG CAPSULE.DR PO ×2 (09:26→20:23)
[2021-08-18] MEDS: Furosemide 40 MG TABLET PO (09:27)
[2021-08-18] MEDS: hydrOXYzine HCL 25 MG TABLET PO ×3 (09:28→20:23)
[2021-08-18] MEDS: Multivitamin TABLET 1 TAB PO (09:28)
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
[2021-08-18] MEDS: Furosemide 20 MG TABLET PO (14:01)
[2021-08-18 18:00] VITALS: BP 131/87; PULSE 83; RESP 16; TEMP 36.2; O2SAT 93
[2021-08-18] MEDS: Lurasidone HCl 40 MG TABLET 120 MG PO (20:23)
[2021-08-18] MEDS: traMADoL HCL 50 MG TABLET PO (20:23)
[2021-08-18] MEDS: traZODone HCL 100 MG TABLET 200 MG PO (20:23)
[2021-08-19 06:00] VITALS: BP 121/78; PULSE 90; RESP 16; TEMP 36.6; O2SAT 97
[2021-08-19] MEDS: traMADoL HCL 50 MG TABLET 100 MG PO (08:06)
[2021-08-19] MEDS: Multivitamin TABLET 1 TAB PO (08:06)
[2021-08-19] MEDS: lamiVUDine 150 MG TABLET 300 MG PO (08:07)
[2021-08-19] MEDS: Rilpivirine HCL 25 MG TABLET PO (08:07)
[2021-08-19] MEDS: calcitrioL 0.25 MCG CAPSULE PO (08:07)
[2021-08-19] MEDS: DULoxetine HCl 60 MG CAPSULE.DR PO ×2 (08:08→20:30)
[2021-08-19] MEDS: Furosemide 40 MG TABLET PO (08:08)
[2021-08-19] MEDS: hydrOXYzine HCL 25 MG TABLET PO ×3 (08:08→20:30)
[2021-08-19] MEDS: Milk of Magnesia 30 ML ORAL.SUSP PO (13:44)
[2021-08-19] MEDS: Furosemide 20 MG TABLET PO (13:44)
--- NOTE | 2021-08-19 13:49 | P.PNPSI_ITS ---
Subjective Subjective Date of Service: 08/19/21 Reason For Visit: Major depressive w/psychotic features Subjective Notes: Conditional Voluntary Interim History: The nursing staff has reported the patient remains isolative but they have not seen her that she is self talking to herself. She complained of left hip pain that he was controlled with her p.r.n. medications. On interview, the patient denies new symptoms she feels better and apparently she could be at her baseline. We will need to gather more collateral information. Medication Compliance: Yes Side effects from medications: No Attending Groups: Intermittent Review of Systems Acute medical concerns: No Medical Review of Systems: unchanged Mental Status Exam Mental Status Exam Patient Appearance: Well Grooomed Patient Orientation: Person and Situation Level of Consciousness: Awake and Appropriate Patient Behavior: Cooperative and Passive Mood Description: Withdrawn Affect Description: Constricted Patient Cognition Impaired: Yes Ability to Follow Directions: Good Speech Pattern: Clear Memory Description: Intact Hallucinations: None Delusions: Not Present Thought Process: Goal Oriented Thought Content: positive for Linear and positive for Poverty of Content Judgement: Fair Diagnostics Vital Signs (24Hr): Vital Signs - 24 hr 08/18/21 18:00 08/19/21 06:00 Temperature 97.2 F 97.8 F Pulse Rate 83 90 Respiratory Rate 16 16 Blood Pressure 131/87 121/78 Pulse Oximetry 93 97 Labs Results: 08/09/21 06:54 08/09/21 06:54 Medications Medications Current Medications Abacavir Sulfate (Abacavir Sulfate 300 Mg Tablet) 300 mg PO BID [facility] Last Admin: 08/19/21 08:06 Dose: 300 mg Documented by: Acetaminophen (Acetaminophen 325 Mg Tablet) 650 mg PO Q6H PRN PRN Reason: Headache/Pain Mild Scale (1-3) Last Admin: 08/18/21 04:02 Dose: 650 mg Documented by: Al Hydroxide/Mg Hydroxide (Magnesium Hydrox/Alum Hydrox 30 Ml Oral.Susp) 30 ml PO Q6H PRN PRN Reason: Heartburn/Nausea Last Admin: 08/13/21 10:20 Dose: 30 ml Documented by: Albuterol Sulfate (Albuterol Sulfate 90 Mcg 8 Gm Inhaler) 2 puff INHALE Q6H PRN PRN Reason: Wheezing Calcitriol (Calcitriol 0.25 Mcg Capsule) 0.25 mcg PO DAILY [facility] Last Admin: 08/19/21 08:07 Dose: 0.25 mcg Documented by: Calcium Carbonate (Calcium Carbonate 500 Mg Tablet) 500 mg PO DAILY [facility] Last Admin: 08/19/21 08:08 Dose: 500 mg Documented by: Duloxetine HCl (Duloxetine Hcl 60 Mg Capsule.Dr) 60 mg PO BID [facility] Last Admin: 08/19/21 08:08 Dose: 60 mg Documented by: Furosemide (Furosemide 40 Mg Tablet) 40 mg PO DAILY [facility]; Protocol Last Admin: 08/19/21 08:08 Dose: 40 mg Documented by: Furosemide (Furosemide 20 Mg Tablet) 20 mg PO DAILY@1400 [facility] Last Admin: 08/19/21 13:44 Dose: 20 mg Documented by: Haloperidol (Haloperidol 1 Mg Tablet) 2 mg PO BID PRN PRN Reason: psychosis Last Admin: 08/17/21 19:51 Dose: 2 mg Documented by: Hydroxyzine HCl (Hydroxyzine Hcl 25 Mg Tablet) 25 mg PO TID [facility] Last Admin: 08/19/21 08:08 Dose: 25 mg Documented by: Lamivudine (Lamivudine 150 Mg Tablet) 300 mg PO DAILY [facility] Last Admin: 08/19/21 08:07 Dose: 300 mg Documented by: Lurasidone HCl (Lurasidone Hcl 40 Mg Tablet) 120 mg PO BEDTIME [facility] Last Admin: 08/18/21 20:23 Dose: 120 mg Documented by: Magnesium Hydroxide (Milk Of Magnesia 30 Ml Oral.Susp) 30 ml PO DAILY PRN PRN Reason: Constipation Last Admin: 08/19/21 13:44 Dose: 30 ml Documented by: Multivitamins/Vitamin C (Multivitamin Tablet) 1 tab PO DAILY [facility] Last Admin: 08/19/21 08:06 Dose: 1 tab Documented by: Rilpivirine (Rilpivirine Hcl 25 Mg Tablet) 25 mg PO DAILY [facility] Last Admin: 08/19/21 08:07 Dose: 25 mg Documented by: Tramadol HCl (Tramadol Hcl 50 Mg Tablet) 50 mg PO BEDTIME [facility] Last Admin: 08/18/21 20:23 Dose: 50 mg Documented by: Trazodone HCl (Trazodone Hcl 50 Mg Tablet) 50 mg PO BEDTIME PRN PRN Reason: Insomnia Last Admin: 08/16/21 19:48 Dose: 50 mg Documented by: Trazodone HCl (Trazodone Hcl 100 Mg Tablet) 200 mg PO BEDTIME [facility] Last Admin: 10/17/21 20:23 Dose: 200 mg Documented by: Allergies Allergies Allergy/AdvReac Type Severity Reaction Status Date / Time aspirin [ASA] AdvReac Unknown Verified 08/08/21 11:51 lactose AdvReac Nausea and Verified 08/08/21 11:51 Vomiting risperidone [From Risperdal] AdvReac Unknown Verified 08/08/21 11:51 Assessment & Plan Assessment & Plan (1) Routine medical exam: Status: Acute Code(s): Z00.00 - Encounter for general adult medical examination without abnormal findings Assessment and Plan: The patient is an elderly descendant female Bulgarian speaking with past history of HIV, psychosis admitted for exacerbation of psychosis. Plan: 1. Continue same treatment. 2. Consider early discharge. Greater than 50% of the session was spent on counseling and/or coordination of care Reason for contiued inpatient stay Substantial Risk for: inability to function, rapid decompensation and med/psych decompensation
[2021-08-19 20:04] VITALS: BP 122/76; PULSE 75; RESP 18; TEMP 36.5; O2SAT 95
[2021-08-19] MEDS: traZODone HCL 100 MG TABLET 200 MG PO (20:30)
[2021-08-19] MEDS: Lurasidone HCl 40 MG TABLET 120 MG PO (20:30)
[2021-08-19] MEDS: traMADoL HCL 50 MG TABLET PO (20:31)
[2021-08-20 06:00] VITALS: BP 113/75; PULSE 87; TEMP 35.9; O2SAT 99
[2021-08-20] MEDS: lamiVUDine 150 MG TABLET 300 MG PO (08:21)
[2021-08-20] MEDS: calcitrioL 0.25 MCG CAPSULE PO (08:22)
[2021-08-20] MEDS: Multivitamin TABLET 1 TAB PO (08:22)
[2021-08-20] MEDS: Rilpivirine HCL 25 MG TABLET PO (08:22)
[2021-08-20] MEDS: DULoxetine HCl 60 MG CAPSULE.DR PO ×2 (08:22→20:04)
[2021-08-20] MEDS: hydrOXYzine HCL 25 MG TABLET PO ×3 (08:23→20:03)
[2021-08-20] MEDS: Furosemide 40 MG TABLET PO (08:23)
[2021-08-20] MEDS: Furosemide 20 MG TABLET PO (14:24)
--- NOTE | 2021-08-20 15:06 | P.PNPSI_ITS ---
Subjective Subjective Date of Service: 08/20/21 Reason For Visit: Major depressive w/psychotic features Subjective Notes: Conditional Voluntary Interim History: The nursing staff reported that the patient has been isolative but compliant with treatment. On interview, the patient was pleasant and cooperative she denies hallucinations and she is willing to continue treatment as an outpatient Medication Compliance: Yes Side effects from medications: No Attending Groups: Intermittent Review of Systems Acute medical concerns: No Medical Review of Systems: unchanged Mental Status Exam Mental Status Exam Patient Appearance: Well Grooomed Patient Orientation: Person, Place and Situation Level of Consciousness: Awake and Appropriate Patient Behavior: Cooperative Mood Description: Calm Affect Description: Constricted Patient Cognition Impaired: No Ability to Follow Directions: Good Speech Pattern: Clear Memory Description: Intact Hallucinations: None Thought Process: Linear Thought Content: positive for Circumstantial Judgement: Fair Diagnostics Vital Signs (24Hr): Vital Signs - 24 hr 08/19/21 20:04 08/20/21 06:00 Temperature 97.7 F 96.6 F L Pulse Rate 75 87 Respiratory Rate 18 Blood Pressure 122/76 113/75 Pulse Oximetry 95 99 Labs Results: 08/09/21 06:54 08/09/21 06:54 Medications Medications Current Medications Abacavir Sulfate (Abacavir Sulfate 300 Mg Tablet) 300 mg PO BID [facility] Last Admin: 08/20/21 08:22 Dose: 300 mg Documented by: Acetaminophen (Acetaminophen 325 Mg Tablet) 650 mg PO Q6H PRN PRN Reason: Headache/Pain Mild Scale (1-3) Last Admin: 08/18/21 04:02 Dose: 650 mg Documented by: Al Hydroxide/Mg Hydroxide (Magnesium Hydrox/Alum Hydrox 30 Ml Oral.Susp) 30 ml PO Q6H PRN PRN Reason: Heartburn/Nausea Last Admin: 08/13/21 10:20 Dose: 30 ml Documented by: Albuterol Sulfate (Albuterol Sulfate 90 Mcg 8 Gm Inhaler) 2 puff INHALE Q6H PRN PRN Reason: Wheezing Calcitriol (Calcitriol 0.25 Mcg Capsule) 0.25 mcg PO DAILY [facility] Last Admin: 08/20/21 08:22 Dose: 0.25 mcg Documented by: Calcium Carbonate (Calcium Carbonate 500 Mg Tablet) 500 mg PO DAILY [facility] Last Admin: 08/20/21 08:22 Dose: 500 mg Documented by: Duloxetine HCl (Duloxetine Hcl 60 Mg Capsule.Dr) 60 mg PO BID [facility] Last Admin: 08/20/21 08:22 Dose: 60 mg Documented by: Furosemide (Furosemide 40 Mg Tablet) 40 mg PO DAILY [facility]; Protocol Last Admin: 08/20/21 08:23 Dose: 40 mg Documented by: Furosemide (Furosemide 20 Mg Tablet) 20 mg PO DAILY@1400 [facility] Last Admin: 08/20/21 14:24 Dose: 20 mg Documented by: Haloperidol (Haloperidol 1 Mg Tablet) 2 mg PO BID PRN PRN Reason: psychosis Last Admin: 08/17/21 19:51 Dose: 2 mg Documented by: Hydroxyzine HCl (Hydroxyzine Hcl 25 Mg Tablet) 25 mg PO TID [facility] Last Admin: 08/20/21 14:24 Dose: 25 mg Documented by: Lamivudine (Lamivudine 150 Mg Tablet) 300 mg PO DAILY [facility] Last Admin: 08/20/21 08:21 Dose: 300 mg Documented by: Lurasidone HCl (Lurasidone Hcl 40 Mg Tablet) 120 mg PO BEDTIME [facility] Last Admin: 08/19/21 20:30 Dose: 120 mg Documented by: Magnesium Hydroxide (Milk Of Magnesia 30 Ml Oral.Susp) 30 ml PO DAILY PRN PRN Reason: Constipation Last Admin: 08/19/21 13:44 Dose: 30 ml Documented by: Multivitamins/Vitamin C (Multivitamin Tablet) 1 tab PO DAILY [facility] Last Admin: 08/20/21 08:22 Dose: 1 tab Documented by: Rilpivirine (Rilpivirine Hcl 25 Mg Tablet) 25 mg PO DAILY [facility] Last Admin: 08/20/21 08:22 Dose: 25 mg Documented by: Trazodone HCl (Trazodone Hcl 50 Mg Tablet) 50 mg PO BEDTIME PRN PRN Reason: Insomnia Last Admin: 08/16/21 19:48 Dose: 50 mg Documented by: Trazodone HCl (Trazodone Hcl 100 Mg Tablet) 200 mg PO BEDTIME [facility] Last Admin: 08/19/21 20:30 Dose: 200 mg Documented by: Allergies Allergies Allergy/AdvReac Type Severity Reaction Status Date / Time aspirin [ASA] AdvReac Unknown Verified 08/08/21 11:51 lactose AdvReac Nausea and Verified 08/08/21 11:51 Vomiting risperidone [From Risperdal] AdvReac Unknown Verified 08/08/21 11:51 Assessment & Plan Assessment & Plan (1) Routine medical exam: Status: Acute Code(s): Z00.00 - Encounter for general adult medical examination without abnormal findings Assessment and Plan: The patient is an elderly descendant female Angu[place] speaking with past history of HIV, psychosis admitted for exacerbation of psychosis. Plan: 1. Continue same treatment. 2. Consider early discharge. I spent minutes with the patient and/or on the patient floor today, greater than?50% of which was spent counseling/coordinating care. Reason for contiued inpatient stay Substantial Risk for: inability to function, rapid decompensation and med/psych decompensation
[2021-08-20 19:45] VITALS: BP 133/87; PULSE 82; RESP 20; TEMP 37; O2SAT 96
[2021-08-20] MEDS: Lurasidone HCl 40 MG TABLET 120 MG PO (20:03)
[2021-08-20] MEDS: traZODone HCL 100 MG TABLET 200 MG PO (20:04)
[2021-08-21 06:00] VITALS: BP 129/91; PULSE 90; RESP 14; TEMP 36.7; O2SAT 93
[2021-08-21] MEDS: Rilpivirine HCL 25 MG TABLET PO (08:14)
[2021-08-21] MEDS: lamiVUDine 150 MG TABLET 300 MG PO (08:14)
[2021-08-21] MEDS: hydrOXYzine HCL 25 MG TABLET PO (08:15)
[2021-08-21] MEDS: Multivitamin TABLET 1 TAB PO (08:15)
[2021-08-21] MEDS: DULoxetine HCl 60 MG CAPSULE.DR PO (08:15)
[2021-08-21] MEDS: calcitrioL 0.25 MCG CAPSULE PO (08:15)
[2021-08-21] MEDS: Furosemide 40 MG TABLET PO (08:15)
[2021-08-21] MEDS: Acetaminophen 325 MG TABLET 650 MG PO (08:24)
--- NOTE | 2021-08-21 10:53 | PM.PSYDC ---
DS: Providers Provider Date of Service: 08/21/21 Date of admission: 08/08/21 11:35 Date of discharge: 08/21/21 Primary care physician: Abraham Melton MD Consults: 08/08/21 10:58 Consult to Hospitalist Routine Consulting Provider: Hospitalist Reason For Exam: Direct admission, history of HIV, chronic renal di 08/08/21 11:55 Consult to Hospitalist Routine Consulting Provider: Hospitalist Reason For Exam: direct admission Attending physician on discharge: Mukesh Harvey DS: Diagnosis Discharge Diagnosis (1) Routine medical exam: Status: Acute DS: Medications Discharge Medications Home Medications: Home Medications Medication Instructions Recorded Confirmed abacavir 300 mg tablet 300 mg PO Q12H 08/08/21 08/08/21 albuterol sulfate 90 mcg/actuation 2 puff INHALATION Q6H PRN MDD 12 08/08/21 08/08/21 aerosol inhaler (Ventolin HFA) puffs calcitriol 0.25 mcg capsule 0.25 mcg PO DAILY 08/08/21 08/08/21 calcium carbonate 500 mg capsule 500 mg PO DAILY 08/08/21 08/08/21 duloxetine 60 mg capsule,delayed 60 mg PO BID 08/08/21 08/08/21 release furosemide 20 mg PO BEDTIME 08/08/21 08/08/21 furosemide 40 mg tablet 40 mg PO QAM 08/08/21 08/08/21 hydroxyzine pamoate 25 mg capsule 25 mg PO TID 08/08/21 08/08/21 lamivudine 300 mg tablet 300 mg PO DAILY 08/08/21 08/08/21 lurasidone 60 mg tablet (Latuda) 60 mg PO DAILY 08/08/21 08/08/21 multivitamin,vs-pqop-Ft-FA-min 1 tab PO DAILY 08/08/21 08/08/21 potassium citrate 20 meq PO BID@0900,1700 08/08/21 08/08/21 rilpivirine 25 mg tablet (Edurant) 25 mg PO DAILY 08/08/21 08/08/21 tramadol 100 mg tablet 100 mg PO DAILY@0730 08/08/21 08/08/21 tramadol 50 mg tablet 50 mg PO BEDTIME 08/08/21 08/08/21 trazodone 100 mg tablet 200 mg PO BEDTIME 08/08/21 08/08/21 Mental Status Exam Mental Status Exam Patient Appearance: Well Grooomed Patient Orientation: Person, Place and Situation Level of Consciousness: Awake and Appropriate Patient Behavior: Cooperative Mood Description: Calm Affect Description: Constricted Patient Cognition Impaired: No Ability to Follow Directions: Good Speech Pattern: Clear Memory Description: Intact Hallucinations: None Delusions: Not Present Thought Process: Linear Thought Content: positive for Circumstantial and positive for Preoccupation Judgement: Fair DS: Summary Hospital Course Hospital Course: The patient was admitted for exacerbation of psychotic symptoms elicited by disorganized behavior, auditory hallucinations and paranoid delusions. The patient carries a diagnosis of schizoaffective disorder depressed type and she is very well known in the community. Please see HPI of the admission note for more details. On admission, we review her list of medications and she has been on Latuda to target her psychotic symptoms. Initially, her dose was 60 mg a day and we start a slow titration up to 120 mg p.o. daily without side effects and improvement of his psychosis. She denied auditory hallucinations, she was pleasant and cooperative and as per collateral information, she was at her baseline. Since there were no safety concerns discharge planning was discussed Time spent discussing smoking cessation with patient: 3 to 10 minutes Status at Discharge Functional status at discharge: independent ambulation Overall status at discharge: patient is back to baseline Time Spent with Patient Time attestation: Total time spent providing and/or coordinating discharge services: Time spent: Less than 30 minutes Discharge Plan Discharge Patient Disposition: Home, Self-Care Discharge Diagnosis: Schizoaffective disorder bipolar type Referrals: Dr.Ronald Bryan (psychiatrists) [facility] [Other] - 09/12/21 9:30 am (Medication appointment scheduled for September @ 9:30 AM via telehealth.) [facility] (therapists) [Other] - 08/21/21 12:00 pm (Appointment scheduled with Cami Fink for 08/21/21 @ 12 PM via telehealth/phone) [facility] [Other] - 1 Week (Please call manager case management Poncho Carrasquillo @ [facility] for community support as needed.) [facility] [Other] - 08/23/21 11:00 am (Assigned [facility] home health care social worker is Sabino Hogan in home visit to be done on 08/23/21 @ 11 AM.) [facility] [Other] - 1 Week (PLEASE - Fax Discharge Paperwork to ATTN: Stefania Cano # ) Abraham Melton MD [Primary Care Provider] - 08/26/21 1:00 pm Discharge Medications: New multivitamin [Daily-Henry] Tablet 1 tab PO DAILY 30 Days Qty: 30 RF: 0 furosemide 40 mg Tablet 40 mg PO DAILY 30 Days Qty: 30 RF: 0 calcium carbonate [Oyster Shell Calcium 500] 500 mg calcium (1,250 mg) Tablet 500 mg PO DAILY 30 Days Qty: 30 RF: 0 furosemide 20 mg Tablet 20 mg PO DAILY@1400 30 Days Qty: 30 RF: 0 Latuda 120 mg tablet 120 mg PO DAILY Qty: 30 RF: 0 Continued tramadol 50 mg Tablet 50 mg PO BEDTIME 30 Days Qty: 30 RF: 0 trazodone 100 mg Tablet 200 mg PO BEDTIME 30 Days Qty: 60 RF: 0 albuterol sulfate [Ventolin HFA] 90 mcg/actuation Hfa Aerosol Inhaler 2 puff INHALATION Q6H MDD 12 puffs PRN (Reason: Wheezing) 30 Days Qty: 1 RF: 0 calcitriol 0.25 mcg Capsule 0.25 mcg PO DAILY 30 Days Qty: 30 RF: 0 hydroxyzine pamoate 25 mg Capsule 25 mg PO TID 30 Days Qty: 90 RF: 0 abacavir 300 mg Tablet 300 mg PO Q12H 30 Days Qty: 60 RF: 0 lamivudine 300 mg Tablet 300 mg PO DAILY 30 Days Qty: 30 RF: 0 duloxetine 60 mg Capsule,Delayed Release(Dr/Ec) 60 mg PO BID 30 Days Qty: 60 RF: 0 Edurant 25 mg Tablet 25 mg PO DAILY 30 Days Qty: 30 RF: 0 tramadol 100 mg Tablet 100 mg PO DAILY@0730 30 Days Qty: 30 RF: 0 Discontinued potassium citrate 10 mEq tablet 20 meq PO BID@0900,1700 RF: 0 furosemide 40 mg Tablet 40 mg PO QAM RF: 0 Latuda 60 mg Tablet 60 mg PO DAILY RF: 0 furosemide 20 mg tablet 20 mg PO BEDTIME RF: 0 calcium carbonate 500 mg Capsule 500 mg PO DAILY RF: 0 Multivitamin And Mineral Tablet 1 tab PO DAILY RF: 0 Discharge Orders: Discharge Order (Routine); Ordered 08/21/21 Ordered By: Mukesh Harvey Diet: advance to usual diet Activity on Discharge: As tolerated Stand Alone Forms: Patient Portal Discharge page, Community Support Care Plan Goals: Care plan goals achieved in the unit Health Concerns: Continue treatment of HIV at her regular infectious disease clinic. Continue medical treatment by PCP. Plan of Treatment: Continue psychiatric treatment and psychotherapy Assessment: Elderly descent female with a long history of schizoaffective disorder depressed type, HIV and other comorbidities admitted for exacerbation of psychosis that improved with titration of Latuda up to 120 mg p.o. daily. At this moment the patient is safe for discharge
[2021-08-21] MEDS: Furosemide 20 MG TABLET PO (13:20)
--- NOTE | 2021-08-21 14:29 | PC.NURSE ---
Patient aware and was ready for discharge. Paperwork reviewed and follow up appointment explained. Patient verbalized understanding. Patient alert ,good mood. Patient denies SI/HI . Belongings reviewed with patient. Patient accompanies with the Nurse and left the Unit per policy.
== END 2021-08-21 14:25 | disposition home or self-care (01) | DRG 885 ==
PROVIDERS: Admitting Provider Psychiatry & Neurology Psychiatry; PCP Internal Medicine; Visit Provider Psychiatry & Neurology Psychiatry
DX: F25.0 Schizoaffective disorder, bipolar type (principal); N18.30 Chronic kidney disease, stage 3 unspecified; E21.3 Hyperparathyroidism, unspecified; Z21 Asymptomatic human immunodeficiency virus [HIV] infection status; Z88.6 Allergy status to analgesic agent; Z79.899 Other long term (current) drug therapy
CPT/HCPCS: 36415; 80048; 80061; 81003; 82607; 82746; 83036; 84443; 85025; 90686; 93005

== ENCOUNTER 2022-06-17 19:39 | Inpatient (IN) | payer MEDICARE, SELFPAY ==
[2022-06-17 20:28] VITALS: BP 135/67; PULSE 79; RESP 16; TEMP 36.8; O2SAT 94
[2022-06-17 20:31] VITALS: BMI 40.4
[2022-06-17] MEDS: Acetaminophen 325 MG TABLET 650 MG PO (21:39)
[2022-06-17] MEDS: traZODone HCL 50 MG TABLET PO (21:40)
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
[2022-06-18 06:00] VITALS: BP 133/75; PULSE 17; RESP 17; TEMP 35.9; O2SAT 95
[2022-06-18] MEDS: Furosemide 20 MG TABLET PO (08:05)
[2022-06-18] MEDS: Cholecalciferol (Vitamin D3) 25 MCG TABLET 50 MCG PO (08:05)
[2022-06-18] MEDS: traMADoL HCL 50 MG TABLET 100 MG PO (08:06)
[2022-06-18] MEDS: Multivitamin TABLET 1 TAB PO (08:11)
[2022-06-18 08:26] LABS: Estimated Average Glucose 108 mg/dL; Hemoglobin A1c % 5.4 %
[2022-06-18 08:30] LABS: Cholesterol 192 mg/dL; HDL Cholesterol 52 mg/dL; LDL Cholesterol Calculated 113 mg/dl; Magnesium 1.8 mg/dL (1.6-2.6); Triglycerides 135 mg/dL
[2022-06-18 08:50] LABS: Free T4 (Free Thyroxine) 0.95 ng/dL (0.71-1.85); Thyroid Stimulating Hormone 2.17 uIU/mL (0.32-4.0)
[2022-06-18 09:18] LABS: Folate 17.5 ng/mL (> or = 4.0); Vitamin B12 667 pg/mL (200-900)
[2022-06-18] MEDS: lamiVUDine 150 MG TABLET 300 MG PO (11:53)
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
--- NOTE | 2022-06-18 16:05 | HO.HSGERICON ---
History of Present Illness Data of Consult Service Date: 06/18/22 Requesting physician: Mukesh Harvey Primary Care Provider: Unknown Physician HPI Reason for consult: routine medical evaluation 72-year-old female with past medical history of CKD 3, HIV, bipolar disorder who was recently transferred from [facility] for inpatient psychiatric treatment. At this point in time she voices no medical complaints Review of Systems Review of Systems: Denies chest pain Denies shortness of breath Denies nausea vomiting diarrhea Denies abdominal pain Denies fever chills PMFSH Medical History Asthma History of nephrolithiasis HIV (human immunodeficiency virus infection) Hypoparathyroidism Impaired fasting glucose Mild dementia BOO (obstructive sleep apnea) Spinal stenosis Stage III chronic kidney disease Stenotic cervical os Surgical History H/O parathyroidectomy Social History Household Members: None Housing: Other Housing Other:: house for the elderly. Do you presently have visiting nurse or other home services: No Patient Tobacco Use Status: Never used Tobacco Smoked in Last 30 Days: No e-Cigarette/Vaping Use: Never Used Use of substances other than those prescribed or required for medical reasons: No Currently Displaying Signs/Symptoms of Drug Intoxication Withdrawal: No Any prior treatment program specific to substance use: No Have you been hit, kicked, punched, or otherwise hurt by someone within the past year? If so, by whom?: No Do you feel safe in your current relationship?: No Current Relationship Is there a partner from a previous relationship who is making you feel unsafe now?: No Are you made to feel afraid or neglected: No Advance Directives: No Advance Directives Information Provided: No Do you have thoughts of harming others: None Do you have a plan to hurt others: No Plan Recently lost weight without trying: No Eating poorly because of decreased appetite: No Nutrition Risks: No Nutritional Risk Patient : No : No Poor oral hygiene: No service: No Sexual orientation: Straight/Heterosexual Meds Allergies Allergy/AdvReac Type Severity Reaction Status Date / Time tree and shrub pollen [TREE] Allergy Intermediate ITCHY EYES Unverified 06/17/22 17:10 [place] And Derivatives AdvReac Intermediate POOR Unverified 06/17/22 17:10 [CITRUS] KIDNEY FUNCTION aspirin [ASA] AdvReac Mild UNKNOWN - Unverified 06/17/22 17:10 KIDNEY PROBLEMS ibuprofen [IBUPROFEN] AdvReac Mild HAS Unverified 06/17/22 17:10 CHRONIC KIDNEY PROBLEMS risperidone [From Risperdal] AdvReac Unknown Verified 06/17/22 17:10 GRASS Allergy Intermediate ITCHY Uncoded 06/17/22 17:10 EYES, SOB DUST Allergy Unknown DIFFICULTY Uncoded 06/17/22 17:10 BREATHING Active Medications: Current Medications Abacavir Sulfate (Abacavir Sulfate 300 Mg Tablet) 600 mg PO DAILY [facility] Last Admin: 06/18/22 08:05 Dose: 600 mg Acetaminophen (Acetaminophen 325 Mg Tablet) 650 mg PO Q6H PRN PRN Reason: Headache/Pain Mild Scale (1-3) Last Admin: 06/17/22 21:39 Dose: 650 mg Al Hydroxide/Mg Hydroxide (Magnesium Hydrox/Alum Hydrox 30 Ml Oral.Susp) 30 ml PO Q6H PRN PRN Reason: Heartburn/Nausea Albuterol Sulfate (Albuterol Sulfate 90 Mcg 8 Gm Inhaler) 2 puff INHALE RQ6H PRN PRN Reason: wheezing Betamethasone Dipropion Augmented (Betamethasone Dip Aug 0.05% Cr 15 Gm Tube) 1 appl TOPICAL BID PRN PRN Reason: eczema Calcium Carbonate (Calcium Carbonate 500 Mg Tablet) 500 mg PO TID [facility] Last Admin: 06/18/22 15:30 Dose: 500 mg Furosemide (Furosemide 20 Mg Tablet) 20 mg PO DAILY [facility]; Protocol Last Admin: 06/18/22 08:05 Dose: 20 mg Hydroxyzine HCl (Hydroxyzine Hcl 25 Mg Tablet) 25 mg PO Q6H PRN PRN Reason: Anxiety Lamivudine (Lamivudine 150 Mg Tablet) 300 mg PO DAILY [facility] Last Admin: 06/18/22 11:53 Dose: 300 mg Loperamide HCl (Loperamide Hcl 2 Mg Capsule) 2 mg PO Q6H PRN PRN Reason: diarrhea Lurasidone HCl (Lurasidone Hcl 20 Mg Tablet) 60 mg PO BEDTIME [facility] Magnesium Hydroxide (Milk Of Magnesia 30 Ml Oral.Susp) 30 ml PO DAILY PRN PRN Reason: Constipation Multivitamins/Vitamin C (Multivitamin Tablet) 1 tab PO DAILY [facility] Last Admin: 06/18/22 08:11 Dose: 1 tab Rilpivirine (Rilpivirine Hcl 25 Mg Tablet) 25 mg PO BEDTIME [facility] Tramadol HCl (Tramadol Hcl 50 Mg Tablet) 100 mg PO DAILY [facility] Last Admin: 06/18/22 08:06 Dose: 100 mg Tramadol HCl (Tramadol Hcl 50 Mg Tablet) 50 mg PO BEDTIME [facility] Trazodone HCl (Trazodone Hcl 50 Mg Tablet) 50 mg PO BEDTIME PRN PRN Reason: Insomnia Last Admin: 06/17/22 21:40 Dose: 50 mg Trazodone HCl (Trazodone Hcl 100 Mg Tablet) 200 mg PO BEDTIME [facility] Triamcinolone Acetonide (Triamcinolone Acet 0.1 % Oint 15 Gm Tube) 1 appl TOPICAL BID PRN PRN Reason: eczema Vitamin D (Cholecalciferol (Vitamin D3) 25 Mcg Tablet) 50 mcg PO DAILY [facility] Last Admin: 06/18/22 08:05 Dose: 50 mcg Home Medications Medication Instructions Recorded Confirmed Last Taken Type abacavir 300 mg tablet 600 mg PO DAILY 06/17/22 06/17/22 Unknown History acetaminophen 325 mg capsule 650 mg PO Q8H PRN Pain, Moderate 06/17/22 06/17/22 06/17/22 15:40 History 650 MG bacitracin 500 unit/gram topical 1 appl topical TID Apply to 06/17/22 06/17/22 Unknown History ointment affected skin for 7 days betamethasone dipropionate 0.05 % 1 appl topical BID PRN as directed 06/17/22 06/17/22 Unknown History topical ointment calcitriol 0.25 mcg capsule 0.5 mcg PO DAILY 06/17/22 06/17/22 Unknown History calcium carbonate 500 mg calcium 500 mg PO 3XD 06/17/22 06/17/22 Unknown History (1,250 mg) tablet (Oyster Shell Calcium 500) hydrocortisone 1 % topical cream 1 appl topical BID 06/17/22 06/17/22 Unknown History loperamide 2 mg tablet 2 mg PO Q4H PRN for loose stools. 06/17/22 06/17/22 Unknown History lurasidone 120 mg tablet (Latuda) 60 mg PO DAILY 06/17/22 Unknown History lurasidone 60 mg tablet 60 mg PO QPM 06/17/22 06/17/22 Unknown History multivitamin with minerals 1 tab PO DAILY 06/17/22 06/17/22 Unknown History potassium citrate 10 mEq (1,080 20 meq PO BID 06/17/22 06/17/22 Unknown History mg) tablet,extended release rilpivirine HCl 25 mg tablet 25 mg PO BEDTIME 06/17/22 06/17/22 Unknown History ([place]) triamcinolone acetonide 0.1 % 1 appl topical BID PRN skin rash 06/17/22 06/17/22 Unknown History topical ointment Results Labs Labs: Laboratory Results - last 24 hr 06/18/22 06/18/22 06/18/22 07:57 07:57 07:57 Estimat Average Glucose 108 Hemoglobin A1c % 5.4 Magnesium 1.8 Triglycerides 135 Cholesterol 192 LDL Cholesterol, Calc 113 HDL Cholesterol 52 Vitamin B12 667 Folate 17.5 TSH 2.17 Free T4 0.95 Assessment and Plan (1) Bipolar disorder: Status: Acute (2) Psychotic disorder: Status: Acute Plan 72-year-old female seen for routine medical assessment on admission to [facility]. There are no acute medical issues at this time will continue all outpatient therapies as ordered. Please call if further assistance needed. Will sign off at this time Physical Exam Vital Signs: Last Vital Signs Temp 96.6 F L 06/18/22 06:00 Pulse 17 L 06/18/22 06:00 Resp 17 06/18/22 06:00 BP 133/75 06/18/22 06:00 Pulse Ox 95 06/18/22 06:00 O2 Del Method 06/18/22 06:00 BMI result Body Mass Index 40.4 Const Other: awake alert oriented x3 no acute distress Resp Other: clear to auscultation bilaterally Cardio Other: no S4; positive S1-S2; no S3 murmurs rubs or gallops GI Other: soft nontender nondistended normoactive bowel sounds Neuro Other: cranial nerves 2-12 grossly intact as tested. Motor is 5/5 all extremities. Sensation is intact. Gait is steady. Cognition ap Cranial nerves: Yes CN's II-XII intact bilaterally Extrem Other: no edema bilaterally
[2022-06-18] MEDS: Betamethasone Dip Aug 0.05% Cr 15 GM TUBE 1 APPL TOPICAL (16:38)
[2022-06-18 18:00] VITALS: BP 146/85; PULSE 73; RESP 18; TEMP 36.3; O2SAT 98
[2022-06-18] MEDS: traZODone HCL 100 MG TABLET 200 MG PO (20:10)
[2022-06-18] MEDS: Lurasidone HCl 20 MG TABLET 60 MG PO (20:10)
[2022-06-18] MEDS: hydrOXYzine HCL 25 MG TABLET PO (20:10)
[2022-06-18] MEDS: traMADoL HCL 50 MG TABLET PO (20:11)
[2022-06-19 06:00] VITALS: BP 134/72; PULSE 75; RESP 16; TEMP 36.4; O2SAT 95
[2022-06-19 07:00] VITALS: BMI 40.8
[2022-06-19] MEDS: Cholecalciferol (Vitamin D3) 25 MCG TABLET 50 MCG PO (08:20)
[2022-06-19] MEDS: traMADoL HCL 50 MG TABLET 100 MG PO (08:20)
[2022-06-19] MEDS: Multivitamin TABLET 1 TAB PO (08:21)
[2022-06-19] MEDS: Furosemide 20 MG TABLET PO (08:21)
[2022-06-19] MEDS: lamiVUDine 150 MG TABLET 300 MG PO (09:52)
--- NOTE | 2022-06-19 11:30 | HO.PSYCHPN ---
Subjective Subjective Date of Service: 06/19/22 Reason For Visit: Bipolar Subjective Notes: Conditional Voluntary Interim History: The nursing staff reported the patient has been pleasant and cooperative. Apparently she had been masking her psych cutting symptoms and she reported paranoia stating that her ex- and ex-'s would bed buttocks and contaminated her apartment. She has does fixed delusions since the previous admission. The patient therapist did a [place] test and she scored 25/30 and she scored 4.2 on the Vladimir test. On interview the patient denies new symptoms she looks pleasantly cooperative. She complained of side effects with Latuda and she agreed to change it to Seroquel. Mental Status Exam Mental Status Exam Patient Appearance: Well Grooomed and Appropriate Patient Orientation: Person and Situation Level of Consciousness: Appropriate Patient Behavior: Cooperative and Passive Mood Description: Withdrawn Affect Description: Constricted Patient Cognition Impaired: Yes Ability to Follow Directions: Good Speech Pattern: Clear Hallucinations: None Delusions: Paranoid Ideation Thought Process: Distracted Thought Content: positive for [place], positive for Circumstantial and positive for Goal Oriented Judgement: Fair Diagnostics Vital Signs (24Hr): Vital Signs - 24 hr 06/18/22 18:00 06/19/22 06:00 Temperature 97.3 F 97.5 F Pulse Rate 73 75 Respiratory Rate 18 16 Blood Pressure 146/85 H 134/72 Pulse Oximetry 98 95 Oxygen Delivery Method Room Air Room Air BMI result Body Mass Index 40.4 Labs Labs: Laboratory Results - last 48 hr 06/18/22 06/18/22 06/18/22 07:57 07:57 07:57 Estimat Average Glucose 108 Hemoglobin A1c % 5.4 Magnesium 1.8 Triglycerides 135 Cholesterol 192 LDL Cholesterol, Calc 113 HDL Cholesterol 52 Vitamin B12 667 Folate 17.5 TSH 2.17 Free T4 0.95 Medications Medications Current Medications Abacavir Sulfate (Abacavir Sulfate 300 Mg Tablet) 600 mg PO DAILY [facility] Last Admin: 06/19/22 08:20 Dose: 600 mg Acetaminophen (Acetaminophen 325 Mg Tablet) 650 mg PO Q6H PRN PRN Reason: Headache/Pain Mild Scale (1-3) Last Admin: 06/17/22 21:39 Dose: 650 mg Al Hydroxide/Mg Hydroxide (Magnesium Hydrox/Alum Hydrox 30 Ml Oral.Susp) 30 ml PO Q6H PRN PRN Reason: Heartburn/Nausea Albuterol Sulfate (Albuterol Sulfate 90 Mcg 8 Gm Inhaler) 2 puff INHALE RQ6H PRN PRN Reason: wheezing Betamethasone Dipropion Augmented (Betamethasone Dip Aug 0.05% Cr 15 Gm Tube) 1 appl TOPICAL BID PRN PRN Reason: eczema Last Admin: 06/18/22 16:38 Dose: 1 appl Calcium Carbonate (Calcium Carbonate 500 Mg Tablet) 500 mg PO TID [facility] Last Admin: 06/19/22 08:21 Dose: 500 mg Furosemide (Furosemide 20 Mg Tablet) 20 mg PO DAILY [facility]; Protocol Last Admin: 06/19/22 08:21 Dose: 20 mg Hydroxyzine HCl (Hydroxyzine Hcl 25 Mg Tablet) 25 mg PO Q6H PRN PRN Reason: Anxiety Last Admin: 06/18/22 20:10 Dose: 25 mg Lamivudine (Lamivudine 150 Mg Tablet) 300 mg PO DAILY [facility] Last Admin: 06/19/22 09:52 Dose: 300 mg Loperamide HCl (Loperamide Hcl 2 Mg Capsule) 2 mg PO Q6H PRN PRN Reason: diarrhea Lurasidone HCl (Lurasidone Hcl 20 Mg Tablet) 60 mg PO BEDTIME [facility] Last Admin: 06/18/22 20:10 Dose: 60 mg Magnesium Hydroxide (Milk Of Magnesia 30 Ml Oral.Susp) 30 ml PO DAILY PRN PRN Reason: Constipation Multivitamins/Vitamin C (Multivitamin Tablet) 1 tab PO DAILY [facility] Last Admin: 06/19/22 08:21 Dose: 1 tab Rilpivirine (Rilpivirine Hcl 25 Mg Tablet) 25 mg PO BEDTIME [facility] Last Admin: 06/18/22 20:14 Dose: Not Given Tramadol HCl (Tramadol Hcl 50 Mg Tablet) 100 mg PO DAILY [facility] Last Admin: 06/19/22 08:20 Dose: 100 mg Tramadol HCl (Tramadol Hcl 50 Mg Tablet) 50 mg PO BEDTIME [facility] Last Admin: 06/18/22 20:11 Dose: 50 mg Trazodone HCl (Trazodone Hcl 50 Mg Tablet) 50 mg PO BEDTIME PRN PRN Reason: Insomnia Last Admin: 06/17/22 21:40 Dose: 50 mg Trazodone HCl (Trazodone Hcl 100 Mg Tablet) 200 mg PO BEDTIME [facility] Last Admin: 06/18/22 20:10 Dose: 200 mg Triamcinolone Acetonide (Triamcinolone Acet 0.1 % Oint 15 Gm Tube) 1 appl TOPICAL BID PRN PRN Reason: eczema Vitamin D (Cholecalciferol (Vitamin D3) 25 Mcg Tablet) 50 mcg PO DAILY [facility] Last Admin: 06/19/22 08:20 Dose: 50 mcg Allergies Allergies Allergy/AdvReac Type Severity Reaction Status Date / Time tree and shrub pollen [TREE] Allergy Intermediate ITCHY EYES Unverified 06/17/22 17:10 [place] And Derivatives AdvReac Intermediate POOR Unverified 06/17/22 17:10 [CITRUS] KIDNEY FUNCTION aspirin [ASA] AdvReac Mild UNKNOWN - Unverified 06/17/22 17:10 KIDNEY PROBLEMS ibuprofen [IBUPROFEN] AdvReac Mild HAS Unverified 06/17/22 17:10 CHRONIC KIDNEY PROBLEMS risperidone [From Risperdal] AdvReac Unknown Verified 06/17/22 17:10 GRASS Allergy Intermediate ITCHY Uncoded 06/17/22 17:10 EYES, SOB DUST Allergy Unknown DIFFICULTY Uncoded 06/17/22 17:10 BREATHING Assessment & Plan Assessment & Plan (1) Bipolar disorder: Status: Acute Code(s): F31.9 - Bipolar disorder, unspecified (2) Psychotic disorder: Status: Acute Code(s): F29 - Unspecified psychosis not due to a substance or known physiological condition Plan 72-year-old female seen for routine medical assessment on admission to [facility]. There are no acute medical issues at this time will continue all outpatient therapies as ordered. Please call if further assistance needed. Will sign off at this time Plan 1. D/C Latuda. 2. Start Seroquel 200 mg po qhs as an antipsychotic/mood stablilzer. 3. Rest the same. I spent ___20___ minutes with the patient and/or on the patient floor today, greater than?50% of which was spent counseling/coordinating care. Reason for contiued inpatient stay Substantial Risk for: inability to function, rapid decompensation and med/psych decompensation
[2022-06-19 18:00] VITALS: BP 122/69; PULSE 86; RESP 18; TEMP 36.7; O2SAT 96
[2022-06-19] MEDS: QUEtiapine Fumarate 200 MG TABLET PO (20:27)
[2022-06-19] MEDS: traMADoL HCL 50 MG TABLET PO (20:28)
[2022-06-19] MEDS: traZODone HCL 100 MG TABLET 200 MG PO (20:29)
[2022-06-19] MEDS: Rilpivirine HCL 25 MG TABLET PO (22:07)
[2022-06-20 06:00] VITALS: BP 128/75; PULSE 79; RESP 16; TEMP 36.3; O2SAT 95
[2022-06-20] MEDS: Multivitamin TABLET 1 TAB PO (07:47)
[2022-06-20] MEDS: traMADoL HCL 50 MG TABLET 100 MG PO (07:48)
[2022-06-20] MEDS: Cholecalciferol (Vitamin D3) 25 MCG TABLET 50 MCG PO (07:48)
[2022-06-20] MEDS: lamiVUDine 150 MG TABLET 300 MG PO (07:48)
[2022-06-20] MEDS: Furosemide 20 MG TABLET PO (07:51)
--- NOTE | 2022-06-20 11:16 | HO.PSYCHPN ---
Subjective Subjective Date of Service: 06/20/22 Reason For Visit: Bipolar Subjective Notes: Conditional Voluntary Interim History: The nursing staff reported the patient was seen socializing with in the stewart with the peers, she feels safe in the facility and she is superficial. She slept well last night and yesterday the social media community manager spoke with the [employer] worker and apparently she had been refusing services in the community. Apparently, she also has bedbugs in her apartment and she had been noncompliant with medications. The occupational therapist reported that she has scored on the [place] 25/30 her Vladimir test is 4.2. On interview the patient reported that she slept well with Seroquel. Mental Status Exam Mental Status Exam Patient Appearance: Well Grooomed Patient Orientation: Person and Situation Level of Consciousness: Awake Patient Behavior: Cooperative Mood Description: Withdrawn Affect Description: Constricted Patient Cognition Impaired: Yes Ability to Follow Directions: Good Speech Pattern: Impoverished Hallucinations: None Delusions: Paranoid Ideation Thought Process: Distracted Thought Content: positive for [place] Judgement: Fair Diagnostics Vital Signs (24Hr): Vital Signs - 24 hr 06/19/22 18:00 Temperature 98.1 F Pulse Rate 86 Respiratory Rate 18 Blood Pressure 122/69 Pulse Oximetry 96 Oxygen Delivery Method Room Air BMI result Body Mass Index 40.8 Medications Medications Current Medications Abacavir Sulfate (Abacavir Sulfate 300 Mg Tablet) 600 mg PO DAILY [facility] Last Admin: 06/20/22 07:47 Dose: 600 mg Acetaminophen (Acetaminophen 325 Mg Tablet) 650 mg PO Q6H PRN PRN Reason: Headache/Pain Mild Scale (1-3) Last Admin: 06/17/22 21:39 Dose: 650 mg Al Hydroxide/Mg Hydroxide (Magnesium Hydrox/Alum Hydrox 30 Ml Oral.Susp) 30 ml PO Q6H PRN PRN Reason: Heartburn/Nausea Albuterol Sulfate (Albuterol Sulfate 90 Mcg 8 Gm Inhaler) 2 puff INHALE RQ6H PRN PRN Reason: wheezing Betamethasone Dipropion Augmented (Betamethasone Dip Aug 0.05% Cr 15 Gm Tube) 1 appl TOPICAL BID PRN PRN Reason: eczema Last Admin: 06/18/22 16:38 Dose: 1 appl Calcium Carbonate (Calcium Carbonate 500 Mg Tablet) 500 mg PO TID [facility] Last Admin: 06/20/22 07:47 Dose: 500 mg Furosemide (Furosemide 20 Mg Tablet) 20 mg PO DAILY [facility]; Protocol Last Admin: 06/20/22 07:51 Dose: 20 mg Hydroxyzine HCl (Hydroxyzine Hcl 25 Mg Tablet) 25 mg PO Q6H PRN PRN Reason: Anxiety Last Admin: 06/18/22 20:10 Dose: 25 mg Lamivudine (Lamivudine 150 Mg Tablet) 300 mg PO DAILY [facility] Last Admin: 06/20/22 07:48 Dose: 300 mg Loperamide HCl (Loperamide Hcl 2 Mg Capsule) 2 mg PO Q6H PRN PRN Reason: diarrhea Magnesium Hydroxide (Milk Of Magnesia 30 Ml Oral.Susp) 30 ml PO DAILY PRN PRN Reason: Constipation Multivitamins/Vitamin C (Multivitamin Tablet) 1 tab PO DAILY [facility] Last Admin: 06/20/22 07:47 Dose: 1 tab Quetiapine Fumarate (Quetiapine Fumarate 200 Mg Tablet) 200 mg PO BEDTIME [facility] Last Admin: 06/19/22 20:27 Dose: 200 mg Rilpivirine (Rilpivirine Hcl 25 Mg Tablet) 25 mg PO BEDTIME [facility] Last Admin: 06/19/22 22:07 Dose: 25 mg Tramadol HCl (Tramadol Hcl 50 Mg Tablet) 100 mg PO DAILY [facility] Last Admin: 06/20/22 07:48 Dose: 100 mg Tramadol HCl (Tramadol Hcl 50 Mg Tablet) 50 mg PO BEDTIME [facility] Last Admin: 06/19/22 20:28 Dose: 50 mg Trazodone HCl (Trazodone Hcl 50 Mg Tablet) 50 mg PO BEDTIME PRN PRN Reason: Insomnia Last Admin: 06/17/22 21:40 Dose: 50 mg Trazodone HCl (Trazodone Hcl 100 Mg Tablet) 200 mg PO BEDTIME [facility] Last Admin: 06/19/22 20:29 Dose: 200 mg Triamcinolone Acetonide (Triamcinolone Acet 0.1 % Oint 15 Gm Tube) 1 appl TOPICAL BID PRN PRN Reason: eczema Vitamin D (Cholecalciferol (Vitamin D3) 25 Mcg Tablet) 50 mcg PO DAILY [facility] Last Admin: 06/20/22 07:48 Dose: 50 mcg Allergies Allergies Allergy/AdvReac Type Severity Reaction Status Date / Time tree and shrub pollen [TREE] Allergy Intermediate ITCHY EYES Verified 06/20/22 05:14 [place] And Derivatives AdvReac Intermediate POOR Verified 06/20/22 05:13 [CITRUS] KIDNEY FUNCTION aspirin [ASA] AdvReac Mild UNKNOWN - Verified 06/20/22 05:19 KIDNEY PROBLEMS ibuprofen [IBUPROFEN] AdvReac Mild HAS Verified 06/20/22 05:15 CHRONIC KIDNEY PROBLEMS risperidone [From Risperdal] AdvReac Itching Verified 06/20/22 05:16 GRASS Allergy Intermediate ITCHY Uncoded 06/17/22 17:10 EYES, SOB DUST Allergy Unknown DIFFICULTY Uncoded 06/17/22 17:10 BREATHING Assessment & Plan Assessment & Plan (1) Bipolar disorder: Status: Acute Code(s): F31.9 - Bipolar disorder, unspecified (2) Psychotic disorder: Status: Acute Code(s): F29 - Unspecified psychosis not due to a substance or known physiological condition Plan 72-year-old female seen for routine medical assessment on admission to [facility]. There are no acute medical issues at this time will continue all outpatient therapies as ordered. Please call if further assistance needed. Will sign off at this time Plan 1. D/C Latuda. 2. Increase Seroquel up to 300 mg po qhs as an antipsychotic/mood stablilzer. 3. Rest the same. I spent ___20___ minutes with the patient and/or on the patient floor today, greater than?50% of which was spent counseling/coordinating care. Reason for contiued inpatient stay Substantial Risk for: inability to function, rapid decompensation and med/psych decompensation
[2022-06-20] MEDS: Acetaminophen 325 MG TABLET 650 MG PO (15:43)
[2022-06-20 18:00] VITALS: BP 135/62; PULSE 75; RESP 18; TEMP 36.6; O2SAT 93
[2022-06-20] MEDS: QUEtiapine Fumarate 300 MG TABLET PO (20:18)
[2022-06-20] MEDS: traMADoL HCL 50 MG TABLET PO (20:19)
[2022-06-20] MEDS: Rilpivirine HCL 25 MG TABLET PO (20:19)
[2022-06-20] MEDS: traZODone HCL 100 MG TABLET 200 MG PO (20:20)
[2022-06-21] MEDS: Acetaminophen 325 MG TABLET 650 MG PO (02:18)
[2022-06-21 06:00] VITALS: BP 109/62; PULSE 77; RESP 17; TEMP 36.2; O2SAT 96
[2022-06-21] MEDS: lamiVUDine 150 MG TABLET 300 MG PO (08:23)
[2022-06-21] MEDS: Multivitamin TABLET 1 TAB PO (08:23)
[2022-06-21] MEDS: Cholecalciferol (Vitamin D3) 25 MCG TABLET 50 MCG PO (08:23)
[2022-06-21] MEDS: Furosemide 20 MG TABLET PO (08:24)
[2022-06-21] MEDS: traMADoL HCL 50 MG TABLET 100 MG PO (08:24)
--- NOTE | 2022-06-21 09:01 | HO.PSYCHPN ---
Subjective Subjective Date of Service: 06/21/22 Reason For Visit: Bipolar Subjective Notes: Perez Warning Interim History: I spoke with pt's team, pt continues to endorse delusional thoughts. I spoke with the pt, says she feels alright, i dont have any problems, denies having questions or concerns. No physical health complaints. Feels safe here. Energy is alright. Denies A/VH. Medication Compliance: Yes Side effects from medications: No Attending Groups: Intermittent Review of Systems Acute medical concerns: No Medical Review of Systems: unchanged Mental Status Exam Mental Status Exam Narrative: Patient Appearance: Well Grooomed Patient Orientation: Person and Situation Level of Consciousness: Awake Patient Behavior: Cooperative Mood Description: Withdrawn Affect Description: Constricted Patient Cognition Impaired: Yes Ability to Follow Directions: Good Speech Pattern: Impoverished Hallucinations: None Delusions: Paranoid Ideation Thought Process: Distracted Thought Content: positive for [place] Judgement: Fair Diagnostics Vital Signs (24Hr): Vital Signs - 24 hr 06/20/22 18:00 Temperature 98 F Pulse Rate 75 Respiratory Rate 18 Blood Pressure 135/62 Pulse Oximetry 93 Oxygen Delivery Method Room Air BMI result Body Mass Index 40.8 Medications Medications Current Medications Abacavir Sulfate (Abacavir Sulfate 300 Mg Tablet) 600 mg PO DAILY [facility] Last Admin: 06/21/22 08:23 Dose: 600 mg Acetaminophen (Acetaminophen 325 Mg Tablet) 650 mg PO Q6H PRN PRN Reason: Headache/Pain Mild Scale (1-3) Last Admin: 06/21/22 02:18 Dose: 650 mg Al Hydroxide/Mg Hydroxide (Magnesium Hydrox/Alum Hydrox 30 Ml Oral.Susp) 30 ml PO Q6H PRN PRN Reason: Heartburn/Nausea Albuterol Sulfate (Albuterol Sulfate 90 Mcg 8 Gm Inhaler) 2 puff INHALE RQ6H PRN PRN Reason: wheezing Betamethasone Dipropion Augmented (Betamethasone Dip Aug 0.05% Cr 15 Gm Tube) 1 appl TOPICAL BID PRN PRN Reason: eczema Last Admin: 06/18/22 16:38 Dose: 1 appl Calcium Carbonate (Calcium Carbonate 500 Mg Tablet) 500 mg PO TID NIEVES Last Admin: 06/21/22 08:23 Dose: 500 mg Furosemide (Furosemide 20 Mg Tablet) 20 mg PO DAILY [facility]; Protocol Last Admin: 06/21/22 08:24 Dose: 20 mg Hydroxyzine HCl (Hydroxyzine Hcl 25 Mg Tablet) 25 mg PO Q6H PRN PRN Reason: Anxiety Last Admin: 06/18/22 20:10 Dose: 25 mg Lamivudine (Lamivudine 150 Mg Tablet) 300 mg PO DAILY [facility] Last Admin: 06/21/22 08:23 Dose: 300 mg Loperamide HCl (Loperamide Hcl 2 Mg Capsule) 2 mg PO Q6H PRN PRN Reason: diarrhea Magnesium Hydroxide (Milk Of Magnesia 30 Ml Oral.Susp) 30 ml PO DAILY PRN PRN Reason: Constipation Multivitamins/Vitamin C (Multivitamin Tablet) 1 tab PO DAILY [facility] Last Admin: 06/21/22 08:23 Dose: 1 tab Quetiapine Fumarate (Quetiapine Fumarate 300 Mg Tablet) 300 mg PO BEDTIME [facility] Last Admin: 06/20/22 20:18 Dose: 300 mg Rilpivirine (Rilpivirine Hcl 25 Mg Tablet) 25 mg PO BEDTIME [facility] Last Admin: 06/20/22 20:19 Dose: 25 mg Tramadol HCl (Tramadol Hcl 50 Mg Tablet) 100 mg PO DAILY [facility] Last Admin: 06/21/22 08:24 Dose: 100 mg Tramadol HCl (Tramadol Hcl 50 Mg Tablet) 50 mg PO BEDTIME [facility] Last Admin: 06/20/22 20:19 Dose: 50 mg Trazodone HCl (Trazodone Hcl 50 Mg Tablet) 50 mg PO BEDTIME PRN PRN Reason: Insomnia Last Admin: 06/17/22 21:40 Dose: 50 mg Trazodone HCl (Trazodone Hcl 100 Mg Tablet) 200 mg PO BEDTIME [facility] Last Admin: 06/20/22 20:20 Dose: 200 mg Triamcinolone Acetonide (Triamcinolone Acet 0.1 % Oint 15 Gm Tube) 1 appl TOPICAL BID PRN PRN Reason: eczema Vitamin D (Cholecalciferol (Vitamin D3) 25 Mcg Tablet) 50 mcg PO DAILY [facility] Last Admin: 06/21/22 08:23 Dose: 50 mcg Allergies Allergies Allergy/AdvReac Type Severity Reaction Status Date / Time tree and shrub pollen [TREE] Allergy Intermediate ITCHY EYES Verified 06/20/22 05:14 [place] And Derivatives AdvReac Intermediate POOR Verified 06/20/22 05:13 [CITRUS] KIDNEY FUNCTION aspirin [ASA] AdvReac Mild UNKNOWN - Verified 06/20/22 05:19 KIDNEY PROBLEMS ibuprofen [IBUPROFEN] AdvReac Mild HAS Verified 06/20/22 05:15 CHRONIC KIDNEY PROBLEMS risperidone [From Risperdal] AdvReac Itching Verified 06/20/22 05:16 GRASS Allergy Intermediate ITCHY Uncoded 06/17/22 17:10 EYES, SOB DUST Allergy Unknown DIFFICULTY Uncoded 06/17/22 17:10 BREATHING Assessment & Plan Assessment & Plan (1) Bipolar disorder: Status: Acute Code(s): F31.9 - Bipolar disorder, unspecified (2) Psychotic disorder: Status: Acute Code(s): F29 - Unspecified psychosis not due to a substance or known physiological condition Plan 72-year-old female seen for routine medical assessment on admission to [facility]. There are no acute medical issues at this time will continue all outpatient therapies as ordered. Please call if further assistance needed. Will sign off at this time Plan 1. D/C Latuda. 2. Increase Seroquel up to 300 mg po qhs as an antipsychotic/mood stablilzer. 3. Rest the same. 06/21: Pt tolerating seroquel, calm and pleasant I spent minutes with the patient and/or on the patient floor today, greater than?50% of which was spent counseling/coordinating care. Patient educated on: other Reason for contiued inpatient stay Substantial Risk for: inability to function, rapid decompensation and med/psych decompensation
[2022-06-21 18:00] VITALS: BP 140/79; PULSE 78; RESP 18; TEMP 36.3; O2SAT 96
[2022-06-21] MEDS: Rilpivirine HCL 25 MG TABLET PO (20:25)
[2022-06-21] MEDS: traMADoL HCL 50 MG TABLET PO (20:25)
[2022-06-21] MEDS: QUEtiapine Fumarate 300 MG TABLET PO (20:25)
[2022-06-21] MEDS: traZODone HCL 100 MG TABLET 200 MG PO (20:26)
[2022-06-22] MEDS: Acetaminophen 325 MG TABLET 650 MG PO ×2 (02:34→22:35)
[2022-06-22] MEDS: traZODone HCL 50 MG TABLET PO ×2 (02:38→22:36)
[2022-06-22] MEDS: Furosemide 20 MG TABLET PO (09:00)
[2022-06-22] MEDS: lamiVUDine 150 MG TABLET 300 MG PO (09:00)
[2022-06-22] MEDS: Multivitamin TABLET 1 TAB PO (09:00)
[2022-06-22] MEDS: Cholecalciferol (Vitamin D3) 25 MCG TABLET 50 MCG PO (09:00)
[2022-06-22] MEDS: traMADoL HCL 50 MG TABLET 100 MG PO (09:00)
--- NOTE | 2022-06-22 17:50 | HO.PSYCHPN ---
Subjective Subjective Date of Service: 06/22/22 Reason For Visit: Bipolar Interim History: I spoke with pt's team, she slept well, pacing in the evening before bed. I spoke with pt and she says she is is good, im alright. Sleep is good. Asks for a stool softener. Her last BM was 2 days ago. Denies SI/SIB, feels safe. Denies anxiety. Denies paranoia. No med changes other than adding miralax. Medication Compliance: Yes Side effects from medications: No Attending Groups: Intermittent Review of Systems Acute medical concerns: No Medical Review of Systems: unchanged Mental Status Exam Mental Status Exam Narrative: Patient Appearance: Well Grooomed Patient Orientation: Person and Situation Level of Consciousness: Awake Patient Behavior: Cooperative Mood Description: Withdrawn Affect Description: Constricted Patient Cognition Impaired: Yes Ability to Follow Directions: Good Speech Pattern: Impoverished Hallucinations: None Delusions: Paranoid Ideation Thought Process: Distracted Thought Content: positive for [place] Judgement: Fair Diagnostics Vital Signs (24Hr): Vital Signs - 24 hr 06/21/22 18:00 Temperature 97.3 F Pulse Rate 78 Respiratory Rate 18 Blood Pressure 140/79 H Pulse Oximetry 96 Oxygen Delivery Method Room Air BMI result Body Mass Index 40.8 Medications Medications Current Medications Abacavir Sulfate (Abacavir Sulfate 300 Mg Tablet) 600 mg PO DAILY [facility] Last Admin: 06/22/22 09:00 Dose: 600 mg Acetaminophen (Acetaminophen 325 Mg Tablet) 650 mg PO Q6H PRN PRN Reason: Headache/Pain Mild Scale (1-3) Last Admin: 06/22/22 02:34 Dose: 650 mg Al Hydroxide/Mg Hydroxide (Magnesium Hydrox/Alum Hydrox 30 Ml Oral.Susp) 30 ml PO Q6H PRN PRN Reason: Heartburn/Nausea Albuterol Sulfate (Albuterol Sulfate 90 Mcg 8 Gm Inhaler) 2 puff INHALE RQ6H PRN PRN Reason: wheezing Betamethasone Dipropion Augmented (Betamethasone Dip Aug 0.05% Cr 15 Gm Tube) 1 appl TOPICAL BID PRN PRN Reason: eczema Last Admin: 06/18/22 16:38 Dose: 1 appl Calcium Carbonate (Calcium Carbonate 500 Mg Tablet) 500 mg PO TID [facility]EVES Last Admin: 06/22/22 09:01 Dose: 500 mg Furosemide (Furosemide 20 Mg Tablet) 20 mg PO DAILY [facility]; Protocol Last Admin: 06/22/22 09:00 Dose: 20 mg Hydroxyzine HCl (Hydroxyzine Hcl 25 Mg Tablet) 25 mg PO Q6H PRN PRN Reason: Anxiety Last Admin: 06/18/22 20:10 Dose: 25 mg Lamivudine (Lamivudine 150 Mg Tablet) 300 mg PO DAILY [facility] Last Admin: 06/22/22 09:00 Dose: 300 mg Loperamide HCl (Loperamide Hcl 2 Mg Capsule) 2 mg PO Q6H PRN PRN Reason: diarrhea Magnesium Hydroxide (Milk Of Magnesia 30 Ml Oral.Susp) 30 ml PO DAILY PRN PRN Reason: Constipation Multivitamins/Vitamin C (Multivitamin Tablet) 1 tab PO DAILY [facility] Last Admin: 06/22/22 09:00 Dose: 1 tab Quetiapine Fumarate (Quetiapine Fumarate 300 Mg Tablet) 300 mg PO BEDTIME [facility] Last Admin: 06/21/22 20:25 Dose: 300 mg Rilpivirine (Rilpivirine Hcl 25 Mg Tablet) 25 mg PO BEDTIME [facility] Last Admin: 06/21/22 20:25 Dose: 25 mg Tramadol HCl (Tramadol Hcl 50 Mg Tablet) 100 mg PO DAILY [facility] Last Admin: 06/22/22 09:00 Dose: 100 mg Tramadol HCl (Tramadol Hcl 50 Mg Tablet) 50 mg PO BEDTIME [facility] Last Admin: 06/21/22 20:25 Dose: 50 mg Trazodone HCl (Trazodone Hcl 50 Mg Tablet) 50 mg PO BEDTIME PRN PRN Reason: Insomnia Last Admin: 06/22/22 02:38 Dose: 50 mg Trazodone HCl (Trazodone Hcl 100 Mg Tablet) 200 mg PO BEDTIME [facility] Last Admin: 06/21/22 20:26 Dose: 200 mg Triamcinolone Acetonide (Triamcinolone Acet 0.1 % Oint 15 Gm Tube) 1 appl TOPICAL BID PRN PRN Reason: eczema Vitamin D (Cholecalciferol (Vitamin D3) 25 Mcg Tablet) 50 mcg PO DAILY [facility] Last Admin: 06/22/22 09:00 Dose: 50 mcg Allergies Allergies Allergy/AdvReac Type Severity Reaction Status Date / Time tree and shrub pollen [TREE] Allergy Intermediate ITCHY EYES Verified 06/20/22 05:14 [place] And Derivatives AdvReac Intermediate POOR Verified 06/20/22 05:13 [CITRUS] KIDNEY FUNCTION aspirin [ASA] AdvReac Mild UNKNOWN - Verified 06/20/22 05:19 KIDNEY PROBLEMS ibuprofen [IBUPROFEN] AdvReac Mild HAS Verified 06/20/22 05:15 CHRONIC KIDNEY PROBLEMS risperidone [From Risperdal] AdvReac Itching Verified 06/20/22 05:16 GRASS Allergy Intermediate ITCHY Uncoded 06/17/22 17:10 EYES, SOB DUST Allergy Unknown DIFFICULTY Uncoded 06/17/22 17:10 BREATHING Assessment & Plan Assessment & Plan (1) Bipolar disorder: Status: Acute Code(s): F31.9 - Bipolar disorder, unspecified (2) Psychotic disorder: Status: Acute Code(s): F29 - Unspecified psychosis not due to a substance or known physiological condition Plan 72-year-old female seen for routine medical assessment on admission to [facility]. There are no acute medical issues at this time will continue all outpatient therapies as ordered. Please call if further assistance needed. Will sign off at this time Plan 1. D/C Latuda. 2. Increase Seroquel up to 300 mg po qhs as an antipsychotic/mood stablilzer. 3. Rest the same. 06/21: Pt tolerating seroquel, calm and pleasant I spent minutes with the patient and/or on the patient floor today, greater than?50% of which was spent counseling/coordinating care. Patient educated on: medication risk/benefits and therapeutic strategies Reason for contiued inpatient stay Substantial Risk for: med/psych decompensation
[2022-06-22 18:00] VITALS: BP 171/83; PULSE 79; RESP 18; TEMP 36.6; O2SAT 94
[2022-06-22] MEDS: QUEtiapine Fumarate 300 MG TABLET PO (20:11)
[2022-06-22] MEDS: traZODone HCL 100 MG TABLET 200 MG PO (20:11)
[2022-06-22] MEDS: traMADoL HCL 50 MG TABLET PO (20:11)
[2022-06-22] MEDS: Rilpivirine HCL 25 MG TABLET PO (20:11)
[2022-06-22] MEDS: polyethylene glycoL 3350 17 GM POWD.PACK PO (22:43)
[2022-06-23 07:30] VITALS: BP 104/66; PULSE 76; RESP 14; TEMP 36.9; O2SAT 93
[2022-06-23] MEDS: traMADoL HCL 50 MG TABLET 100 MG PO (09:36)
[2022-06-23] MEDS: lamiVUDine 150 MG TABLET 300 MG PO (09:37)
[2022-06-23] MEDS: Cholecalciferol (Vitamin D3) 25 MCG TABLET 50 MCG PO (09:37)
[2022-06-23] MEDS: Multivitamin TABLET 1 TAB PO (09:37)
[2022-06-23] MEDS: Furosemide 20 MG TABLET PO (09:37)
[2022-06-23] MEDS: Milk of Magnesia 30 ML ORAL.SUSP PO (10:26)
--- NOTE | 2022-06-23 15:46 | HO.PSYCHPN ---
Subjective Subjective Date of Service: 06/23/22 Reason For Visit: Bipolar Subjective Notes: Conditional Voluntary Interim History: The nursing staff reported the patient has been isolative be stable in the unit only for meals. She reports chronic pain. She slept well most of the nights. On interview the patient denies new symptoms she stated that Seroquel works well for her but she looks internally preoccupied. The hospital social worker reported that we have a meeting with [facility] is staff next Thursday. Mental Status Exam Mental Status Exam Patient Appearance: Well Grooomed Patient Orientation: Person and Situation Level of Consciousness: Awake Patient Behavior: Cooperative Mood Description: Suspicious Affect Description: Withdrawn and Constricted Patient Cognition Impaired: Yes Ability to Follow Directions: Good Speech Pattern: Clear Hallucinations: None Delusions: Paranoid Ideation Thought Process: Distracted and Confusion Thought Content: positive for [place] Judgement: Fair Diagnostics Vital Signs (24Hr): Vital Signs - 24 hr 06/22/22 18:00 06/23/22 07:30 Temperature 97.8 F 98.5 F Pulse Rate 79 76 Respiratory Rate 18 14 Blood Pressure 171/83 H 104/66 Pulse Oximetry 94 93 Oxygen Delivery Method Room Air Room Air BMI result Body Mass Index 40.8 Medications Medications Current Medications Abacavir Sulfate (Abacavir Sulfate 300 Mg Tablet) 600 mg PO DAILY [facility] Last Admin: 06/23/22 09:37 Dose: 600 mg Acetaminophen (Acetaminophen 325 Mg Tablet) 650 mg PO Q6H PRN PRN Reason: Headache/Pain Mild Scale (1-3) Last Admin: 06/22/22 22:35 Dose: 650 mg Al Hydroxide/Mg Hydroxide (Magnesium Hydrox/Alum Hydrox 30 Ml Oral.Susp) 30 ml PO Q6H PRN PRN Reason: Heartburn/Nausea Albuterol Sulfate (Albuterol Sulfate 90 Mcg 8 Gm Inhaler) 2 puff INHALE RQ6H PRN PRN Reason: wheezing Betamethasone Dipropion Augmented (Betamethasone Dip Aug 0.05% Cr 15 Gm Tube) 1 appl TOPICAL BID PRN PRN Reason: eczema Last Admin: 06/18/22 16:38 Dose: 1 appl Calcium Carbonate (Calcium Carbonate 500 Mg Tablet) 500 mg PO TID [facility] Last Admin: 06/23/22 09:37 Dose: 500 mg Furosemide (Furosemide 20 Mg Tablet) 20 mg PO DAILY [facility]; Protocol Last Admin: 06/23/22 09:37 Dose: 20 mg Hydroxyzine HCl (Hydroxyzine Hcl 25 Mg Tablet) 25 mg PO Q6H PRN PRN Reason: Anxiety Last Admin: 06/18/22 20:10 Dose: 25 mg Lamivudine (Lamivudine 150 Mg Tablet) 300 mg PO DAILY [facility] Last Admin: 06/23/22 09:37 Dose: 300 mg Loperamide HCl (Loperamide Hcl 2 Mg Capsule) 2 mg PO Q6H PRN PRN Reason: diarrhea Magnesium Hydroxide (Milk Of Magnesia 30 Ml Oral.Susp) 30 ml PO DAILY PRN PRN Reason: Constipation Last Admin: 06/23/22 10:26 Dose: 30 ml Multivitamins/Vitamin C (Multivitamin Tablet) 1 tab PO DAILY [facility] Last Admin: 06/23/22 09:37 Dose: 1 tab Polyethylene Glycol (Polyethylene Glycol 3350 17 Gm Powd.Pack) 17 gm PO DAILY PRN PRN Reason: constipation Last Admin: 06/22/22 22:43 Dose: 17 gm Quetiapine Fumarate (Quetiapine Fumarate 300 Mg Tablet) 300 mg PO BEDTIME [facility] Last Admin: 06/22/22 20:11 Dose: 300 mg Rilpivirine (Rilpivirine Hcl 25 Mg Tablet) 25 mg PO BEDTIME [facility] Last Admin: 06/22/22 20:11 Dose: 25 mg Tramadol HCl (Tramadol Hcl 50 Mg Tablet) 100 mg PO DAILY [facility] Last Admin: 06/23/22 09:36 Dose: 100 mg Tramadol HCl (Tramadol Hcl 50 Mg Tablet) 50 mg PO BEDTIME [facility] Last Admin: 06/22/22 20:11 Dose: 50 mg Trazodone HCl (Trazodone Hcl 50 Mg Tablet) 50 mg PO BEDTIME PRN PRN Reason: Insomnia Last Admin: 06/22/22 22:36 Dose: 50 mg Trazodone HCl (Trazodone Hcl 100 Mg Tablet) 200 mg PO BEDTIME [facility] Last Admin: 06/22/22 20:11 Dose: 200 mg Triamcinolone Acetonide (Triamcinolone Acet 0.1 % Oint 15 Gm Tube) 1 appl TOPICAL BID PRN PRN Reason: eczema Vitamin D (Cholecalciferol (Vitamin D3) 25 Mcg Tablet) 50 mcg PO DAILY [facility] Last Admin: 06/23/22 09:37 Dose: 50 mcg Allergies Allergies Allergy/AdvReac Type Severity Reaction Status Date / Time tree and shrub pollen [TREE] Allergy Intermediate ITCHY EYES Verified 06/20/22 05:14 [place] And Derivatives AdvReac Intermediate POOR Verified 06/20/22 05:13 [CITRUS] KIDNEY FUNCTION aspirin [ASA] AdvReac Mild UNKNOWN - Verified 06/20/22 05:19 KIDNEY PROBLEMS ibuprofen [IBUPROFEN] AdvReac Mild HAS Verified 06/20/22 05:15 CHRONIC KIDNEY PROBLEMS risperidone [From Risperdal] AdvReac Itching Verified 06/20/22 05:16 GRASS Allergy Intermediate ITCHY Uncoded 06/17/22 17:10 EYES, SOB DUST Allergy Unknown DIFFICULTY Uncoded 06/17/22 17:10 BREATHING Assessment & Plan Assessment & Plan (1) Bipolar disorder: Status: Acute Code(s): F31.9 - Bipolar disorder, unspecified (2) Psychotic disorder: Status: Acute Code(s): F29 - Unspecified psychosis not due to a substance or known physiological condition Plan 72-year-old female seen for routine medical assessment on admission to [facility]. There are no acute medical issues at this time will continue all outpatient therapies as ordered. Please call if further assistance needed. Will sign off at this time Plan 1. D/C Latuda. 2. Increase Seroquel up to 300 mg po qhs as an antipsychotic/mood stablilzer. 3. Rest the same. 4. Meeting with [facility] staff on Thursday. I spent ___20___ minutes with the patient and/or on the patient floor today, greater than?50% of which was spent counseling/coordinating care. Reason for contiued inpatient stay Substantial Risk for: inability to function, rapid decompensation and med/psych decompensation
[2022-06-23 18:00] VITALS: BP 124/64; PULSE 86; RESP 16; TEMP 36.7; O2SAT 94
[2022-06-23] MEDS: Rilpivirine HCL 25 MG TABLET PO (20:08)
[2022-06-23] MEDS: QUEtiapine Fumarate 300 MG TABLET PO (20:08)
[2022-06-23] MEDS: traMADoL HCL 50 MG TABLET PO (20:08)
[2022-06-23] MEDS: traZODone HCL 100 MG TABLET 200 MG PO (20:09)
[2022-06-24 06:00] VITALS: BP 119/58; PULSE 78; RESP 17; TEMP 36.2; O2SAT 94
[2022-06-24] MEDS: traMADoL HCL 50 MG TABLET 100 MG PO (07:50)
[2022-06-24] MEDS: lamiVUDine 150 MG TABLET 300 MG PO (07:51)
[2022-06-24] MEDS: Cholecalciferol (Vitamin D3) 25 MCG TABLET 50 MCG PO (07:51)
[2022-06-24] MEDS: Multivitamin TABLET 1 TAB PO (07:52)
[2022-06-24] MEDS: Furosemide 20 MG TABLET PO (07:52)
--- NOTE | 2022-06-24 16:24 | HO.PSYCHPN ---
Subjective Subjective Date of Service: 06/24/22 Reason For Visit: Bipolar Subjective Notes: Conditional Voluntary Interim History: The nursing staff reported the patient has been isolative but fully compliant with treatment. Occupational therapist reported that she has attended to a few groups and she looks much better. Today we had a meeting with his [facility] team and will planning on discharge most likely at the end of the week. On interview the patient denies new symptoms she states that Seroquel is helping her. Mental Status Exam Mental Status Exam Patient Appearance: Well Grooomed Patient Orientation: Person and Situation Level of Consciousness: Awake Patient Behavior: Cooperative Mood Description: Calm Affect Description: Constricted Patient Cognition Impaired: Yes Ability to Follow Directions: Good Speech Pattern: Clear Hallucinations: None Delusions: Paranoid Ideation Thought Process: Illogical and Distracted Thought Content: positive for [place] and positive for Obsessional Thoughts Judgement: Fair Diagnostics Vital Signs (24Hr): Vital Signs - 24 hr 06/23/22 18:00 06/24/22 06:00 Temperature 98.0 F 97.1 F Pulse Rate 86 78 Respiratory Rate 16 17 Blood Pressure 124/64 119/58 L Pulse Oximetry 94 94 Oxygen Delivery Method Room Air Room Air BMI result Body Mass Index 40.8 Medications Medications Current Medications Abacavir Sulfate (Abacavir Sulfate 300 Mg Tablet) 600 mg PO DAILY [facility] Last Admin: 06/24/22 07:51 Dose: 600 mg Acetaminophen (Acetaminophen 325 Mg Tablet) 650 mg PO Q6H PRN PRN Reason: Headache/Pain Mild Scale (1-3) Last Admin: 06/22/22 22:35 Dose: 650 mg Al Hydroxide/Mg Hydroxide (Magnesium Hydrox/Alum Hydrox 30 Ml Oral.Susp) 30 ml PO Q6H PRN PRN Reason: Heartburn/Nausea Albuterol Sulfate (Albuterol Sulfate 90 Mcg 8 Gm Inhaler) 2 puff INHALE RQ6H PRN PRN Reason: wheezing Betamethasone Dipropion Augmented (Betamethasone Dip Aug 0.05% Cr 15 Gm Tube) 1 appl TOPICAL BID PRN PRN Reason: eczema Last Admin: 06/18/22 16:38 Dose: 1 appl Calcium Carbonate (Calcium Carbonate 500 Mg Tablet) 500 mg PO TID NIEVES Last Admin: 06/24/22 16:10 Dose: 500 mg Furosemide (Furosemide 20 Mg Tablet) 20 mg PO DAILY [facility]; Protocol Last Admin: 06/24/22 07:52 Dose: 20 mg Hydroxyzine HCl (Hydroxyzine Hcl 25 Mg Tablet) 25 mg PO Q6H PRN PRN Reason: Anxiety Last Admin: 06/18/22 20:10 Dose: 25 mg Lamivudine (Lamivudine 150 Mg Tablet) 300 mg PO DAILY [facility] Last Admin: 06/24/22 07:51 Dose: 300 mg Loperamide HCl (Loperamide Hcl 2 Mg Capsule) 2 mg PO Q6H PRN PRN Reason: diarrhea Magnesium Hydroxide (Milk Of Magnesia 30 Ml Oral.Susp) 30 ml PO DAILY PRN PRN Reason: Constipation Last Admin: 06/23/22 10:26 Dose: 30 ml Multivitamins/Vitamin C (Multivitamin Tablet) 1 tab PO DAILY [facility] Last Admin: 06/24/22 07:52 Dose: 1 tab Polyethylene Glycol (Polyethylene Glycol 3350 17 Gm Powd.Pack) 17 gm PO DAILY PRN PRN Reason: constipation Last Admin: 06/22/22 22:43 Dose: 17 gm Quetiapine Fumarate (Quetiapine Fumarate 300 Mg Tablet) 300 mg PO BEDTIME [facility] Last Admin: 06/23/22 20:08 Dose: 300 mg Rilpivirine (Rilpivirine Hcl 25 Mg Tablet) 25 mg PO BEDTIME [facility] Last Admin: 06/23/22 20:08 Dose: 25 mg Tramadol HCl (Tramadol Hcl 50 Mg Tablet) 100 mg PO DAILY [facility] Last Admin: 06/24/22 07:50 Dose: 100 mg Tramadol HCl (Tramadol Hcl 50 Mg Tablet) 50 mg PO BEDTIME [facility] Last Admin: 06/23/22 20:08 Dose: 50 mg Trazodone HCl (Trazodone Hcl 50 Mg Tablet) 50 mg PO BEDTIME PRN PRN Reason: Insomnia Last Admin: 06/22/22 22:36 Dose: 50 mg Trazodone HCl (Trazodone Hcl 100 Mg Tablet) 200 mg PO BEDTIME [facility] Last Admin: 06/23/22 20:09 Dose: 200 mg Triamcinolone Acetonide (Triamcinolone Acet 0.1 % Oint 15 Gm Tube) 1 appl TOPICAL BID PRN PRN Reason: eczema Vitamin D (Cholecalciferol (Vitamin D3) 25 Mcg Tablet) 50 mcg PO DAILY [facility] Last Admin: 06/24/22 07:51 Dose: 50 mcg Allergies Allergies Allergy/AdvReac Type Severity Reaction Status Date / Time tree and shrub pollen [TREE] Allergy Intermediate ITCHY EYES Verified 06/20/22 05:14 [place] And Derivatives AdvReac Intermediate POOR Verified 06/20/22 05:13 [CITRUS] KIDNEY FUNCTION aspirin [ASA] AdvReac Mild UNKNOWN - Verified 06/20/22 05:19 KIDNEY PROBLEMS ibuprofen [IBUPROFEN] AdvReac Mild HAS Verified 06/20/22 05:15 CHRONIC KIDNEY PROBLEMS risperidone [From Risperdal] AdvReac Itching Verified 06/20/22 05:16 GRASS Allergy Intermediate ITCHY Uncoded 06/17/22 17:10 EYES, SOB DUST Allergy Unknown DIFFICULTY Uncoded 06/17/22 17:10 BREATHING Assessment & Plan Assessment & Plan (1) Bipolar disorder: Status: Acute Code(s): F31.9 - Bipolar disorder, unspecified (2) Psychotic disorder: Status: Acute Code(s): F29 - Unspecified psychosis not due to a substance or known physiological condition Plan 72-year-old female seen for routine medical assessment on admission to [facility]. There are no acute medical issues at this time will continue all outpatient therapies as ordered. Please call if further assistance needed. Will sign off at this time Plan 1. D/C Latuda. 2. Increase Seroquel up to 300 mg po qhs as an antipsychotic/mood stablilzer. 3. Rest the same. 4. Meeting with [facility] staff on Thursday. 5. Discharge planning for the end of the week I spent __20____ minutes with the patient and/or on the patient floor today, greater than?50% of which was spent counseling/coordinating care. Reason for contiued inpatient stay Substantial Risk for: inability to function, rapid decompensation and med/psych decompensation
[2022-06-24 18:00] VITALS: BP 136/71; PULSE 83; RESP 14; TEMP 36.6; O2SAT 93
[2022-06-24] MEDS: traZODone HCL 100 MG TABLET 200 MG PO (20:06)
[2022-06-24] MEDS: Rilpivirine HCL 25 MG TABLET PO (20:07)
[2022-06-24] MEDS: QUEtiapine Fumarate 300 MG TABLET PO (20:07)
[2022-06-24] MEDS: traMADoL HCL 50 MG TABLET PO (20:08)
[2022-06-25 07:30] VITALS: BP 114/79; PULSE 86; RESP 17; TEMP 36.2; O2SAT 95
[2022-06-25] MEDS: traMADoL HCL 50 MG TABLET 100 MG PO (08:18)
[2022-06-25] MEDS: Cholecalciferol (Vitamin D3) 25 MCG TABLET 50 MCG PO (08:19)
[2022-06-25] MEDS: Furosemide 20 MG TABLET PO (08:19)
[2022-06-25] MEDS: lamiVUDine 150 MG TABLET 300 MG PO (08:19)
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
[2022-06-25] MEDS: Multivitamin TABLET 1 TAB PO (16:14)
[2022-06-25 18:00] VITALS: BP 135/71; PULSE 84; RESP 17; TEMP 36.6; O2SAT 95
[2022-06-25] MEDS: QUEtiapine Fumarate 300 MG TABLET PO (20:45)
[2022-06-25] MEDS: traMADoL HCL 50 MG TABLET PO (20:45)
[2022-06-25] MEDS: Rilpivirine HCL 25 MG TABLET PO (20:45)
[2022-06-25] MEDS: traZODone HCL 100 MG TABLET 200 MG PO (20:46)
[2022-06-25] MEDS: hydrOXYzine HCL 25 MG TABLET PO (20:57)
[2022-06-26 07:00] VITALS: BP 131/70; PULSE 96; RESP 17; TEMP 36.3; O2SAT 97
--- NOTE | 2022-06-26 09:18 | P.PNPSI_ITS ---
Subjective Subjective Date of Service: 06/26/22 Reason For Visit: Bipolar Subjective Notes: Conditional Voluntary Interim History: Pt reports sleeping and eating well. She reports I only needed a good night sleep and I got that here. She denies SI/HI. She denies depressed mood. No VH/AH. Per nursing, she is mostly in room, sleeping through the night. Medication Compliance: Yes Side effects from medications: No Attending Groups: Yes Review of Systems Review of Systems Denies chest pain Denies shortness of breath Denies nausea vomiting diarrhea Denies abdominal pain Denies fever chills Yes all other systems are reviewed and are negative Mental Status Exam Mental Status Exam Narrative: Patient Appearance: Well Grooomed Patient Orientation: Person and Situation Level of Consciousness: Awake Patient Behavior: Cooperative Mood Description: Withdrawn Affect Description: Constricted Patient Cognition Impaired: Yes Ability to Follow Directions: Good Speech Pattern: Impoverished Hallucinations: None Delusions: Paranoid Ideation Thought Process: Distracted Thought Content: positive for [place] Judgement: Fair Patient Appearance: Well Grooomed Patient Orientation: Person Level of Consciousness: Awake Patient Behavior: Cooperative Mood Description: Constricted Affect Description: Labile Patient Cognition Impaired: Yes Ability to Follow Directions: Good Speech Pattern: Clear Memory Description: Intact Diagnostics Vital Signs (24Hr): Vital Signs - 24 hr 06/26/22 18:00 Temperature 97.7 F Pulse Rate 85 Respiratory Rate 16 Blood Pressure 130/63 Pulse Oximetry 95 Oxygen Delivery Method Room Air BMI result Body Mass Index 40.8 Medications Medications Current Medications Abacavir Sulfate (Abacavir Sulfate 300 Mg Tablet) 600 mg PO DAILY NIEVES Last Admin: 06/26/22 09:52 Dose: 600 mg Acetaminophen (Acetaminophen 325 Mg Tablet) 650 mg PO Q6H PRN PRN Reason: Headache/Pain Mild Scale (1-3) Last Admin: 06/22/22 22:35 Dose: 650 mg Al Hydroxide/Mg Hydroxide (Magnesium Hydrox/Alum Hydrox 30 Ml Oral.Susp) 30 ml PO Q6H PRN PRN Reason: Heartburn/Nausea Albuterol Sulfate (Albuterol Sulfate 90 Mcg 8 Gm Inhaler) 2 puff INHALE RQ6H PRN PRN Reason: wheezing Betamethasone Dipropion Augmented (Betamethasone Dip Aug 0.05% Cr 15 Gm Tube) 1 appl TOPICAL BID PRN PRN Reason: eczema Last Admin: 06/18/22 16:38 Dose: 1 appl Calcium Carbonate (Calcium Carbonate 500 Mg Tablet) 500 mg PO TID NIEVES Last Admin: 06/26/22 20:33 Dose: 500 mg Furosemide (Furosemide 20 Mg Tablet) 20 mg PO DAILY NIEVES; Protocol Last Admin: 06/26/22 09:52 Dose: 20 mg Hydroxyzine HCl (Hydroxyzine Hcl 25 Mg Tablet) 25 mg PO Q6H PRN PRN Reason: Anxiety Last Admin: 06/25/22 20:57 Dose: 25 mg Lamivudine (Lamivudine 150 Mg Tablet) 300 mg PO DAILY NIEVES Last Admin: 06/26/22 09:52 Dose: 300 mg Loperamide HCl (Loperamide Hcl 2 Mg Capsule) 2 mg PO Q6H PRN PRN Reason: diarrhea Magnesium Hydroxide (Milk Of Magnesia 30 Ml Oral.Susp) 30 ml PO DAILY PRN PRN Reason: Constipation Last Admin: 06/23/22 10:26 Dose: 30 ml Multivitamins/Vitamin C (Multivitamin Tablet) 1 tab PO DAILY NIEVES Last Admin: 06/26/22 09:52 Dose: 1 tab Polyethylene Glycol (Polyethylene Glycol 3350 17 Gm Powd.Pack) 17 gm PO DAILY PRN PRN Reason: constipation Last Admin: 06/22/22 22:43 Dose: 17 gm Quetiapine Fumarate (Quetiapine Fumarate 300 Mg Tablet) 300 mg PO BEDTIME NIEVES Last Admin: 06/26/22 20:33 Dose: 300 mg Rilpivirine (Rilpivirine Hcl 25 Mg Tablet) 25 mg PO BEDTIME NIEVES Last Admin: 06/26/22 20:33 Dose: 25 mg Tramadol HCl (Tramadol Hcl 50 Mg Tablet) 100 mg PO DAILY NIEVES Last Admin: 06/26/22 09:51 Dose: 100 mg Tramadol HCl (Tramadol Hcl 50 Mg Tablet) 50 mg PO BEDTIME NIEVES Last Admin: 06/26/22 20:33 Dose: 50 mg Trazodone HCl (Trazodone Hcl 50 Mg Tablet) 50 mg PO BEDTIME PRN PRN Reason: Insomnia Last Admin: 06/22/22 22:36 Dose: 50 mg Trazodone HCl (Trazodone Hcl 100 Mg Tablet) 200 mg PO BEDTIME NIEVES Last Admin: 06/26/22 20:33 Dose: 200 mg Triamcinolone Acetonide (Triamcinolone Acet 0.1 % Oint 15 Gm Tube) 1 appl TOPICAL BID PRN PRN Reason: eczema Vitamin D (Cholecalciferol (Vitamin D3) 25 Mcg Tablet) 50 mcg PO DAILY NIEVES Last Admin: 06/26/22 09:52 Dose: 50 mcg Allergies Allergies Allergy/AdvReac Type Severity Reaction Status Date / Time tree and shrub pollen [TREE] Allergy Intermediate ITCHY EYES Verified 06/20/22 05:14 [place] And Derivatives AdvReac Intermediate POOR Verified 06/20/22 05:13 [CITRUS] KIDNEY FUNCTION aspirin [ASA] AdvReac Mild UNKNOWN - Verified 06/20/22 05:19 KIDNEY PROBLEMS ibuprofen [IBUPROFEN] AdvReac Mild HAS Verified 06/20/22 05:15 CHRONIC KIDNEY PROBLEMS risperidone [From Risperdal] AdvReac Itching Verified 06/20/22 05:16 GRASS Allergy Intermediate ITCHY Uncoded 06/17/22 17:10 EYES, SOB DUST Allergy Unknown DIFFICULTY Uncoded 06/17/22 17:10 BREATHING Assessment & Plan Assessment & Plan (1) Bipolar disorder: Status: Acute Code(s): F31.9 - Bipolar disorder, unspecified (2) Psychotic disorder: Status: Acute Code(s): F29 - Unspecified psychosis not due to a substance or known physiological condition Plan 72-year-old female seen for routine medical assessment on admission to [facility]. There are no acute medical issues at this time will continue all outpatient therapies as ordered. Please call if further assistance needed. Will sign off at this time Plan 1. D/C Latuda. 2. Increase Seroquel up to 300 mg po qhs as an antipsychotic/mood stablilzer. 3. Rest the same. 4. Meeting with [facility] staff on Thursday. 5. Discharge planning for the end of the week 06/26 continue current medications. I spent minutes with the patient and/or on the patient floor today, greater than?50% of which was spent counseling/coordinating care. Reason for contiued inpatient stay Substantial Risk for: stable for discharge
[2022-06-26] MEDS: traMADoL HCL 50 MG TABLET 100 MG PO (09:51)
[2022-06-26] MEDS: Multivitamin TABLET 1 TAB PO (09:52)
[2022-06-26] MEDS: lamiVUDine 150 MG TABLET 300 MG PO (09:52)
[2022-06-26] MEDS: Furosemide 20 MG TABLET PO (09:52)
[2022-06-26] MEDS: Cholecalciferol (Vitamin D3) 25 MCG TABLET 50 MCG PO (09:52)
[2022-06-26 18:00] VITALS: BP 130/63; PULSE 85; RESP 16; TEMP 36.5; O2SAT 95
[2022-06-26] MEDS: traZODone HCL 100 MG TABLET 200 MG PO (20:33)
[2022-06-26] MEDS: Rilpivirine HCL 25 MG TABLET PO (20:33)
[2022-06-26] MEDS: traMADoL HCL 50 MG TABLET PO (20:33)
[2022-06-26] MEDS: QUEtiapine Fumarate 300 MG TABLET PO (20:33)
[2022-06-27 06:00] VITALS: BP 138/87; PULSE 77; RESP 18; TEMP 37; O2SAT 96
[2022-06-27] MEDS: Multivitamin TABLET 1 TAB PO (09:54)
[2022-06-27] MEDS: Furosemide 20 MG TABLET PO (09:54)
[2022-06-27] MEDS: Cholecalciferol (Vitamin D3) 25 MCG TABLET 50 MCG PO (09:54)
[2022-06-27] MEDS: lamiVUDine 150 MG TABLET 300 MG PO (09:54)
[2022-06-27] MEDS: traMADoL HCL 50 MG TABLET 100 MG PO (09:54)
== END 2022-06-27 13:15 | disposition home health service (06) | DRG 885 ==
PROVIDERS: Registered Nurse; Admitting Provider Psychiatry & Neurology Psychiatry; Visit Provider Psychiatry & Neurology Psychiatry
DX: F31.9 Bipolar disorder, unspecified (principal); Z21 Asymptomatic human immunodeficiency virus [HIV] infection status; F29 Unspecified psychosis not due to a substance or known physiological condition; F03.90 Unspecified dementia, unspecified severity, without behavioral disturbance, psychotic disturbance, mood disturbance, and anxiety; J45.909 Unspecified asthma, uncomplicated; Z87.442 Personal history of urinary calculi; Z88.5 Allergy status to narcotic agent; Z88.6 Allergy status to analgesic agent; Z79.899 Other long term (current) drug therapy
CPT/HCPCS: 36415; 80061; 82607; 82746; 83036; 83735; 84439; 84443